=== PATIENT | male | born 1950 | race Hispanic/Latino ===

== ENCOUNTER 2018-08-23 14:38 | Emergency (ER) | payer MEDICARE, OTHER ==
--- NOTE | 2018-08-23 15:20 | Emergency Department Report ---
ED General Adult HPI - General Chief complaint: Medical Clearance Stated complaint: NOT EATING/DRINKING Time Seen by Provider: 08/23/18 15:02 Source: patient, EMS Mode of arrival: Stretcher Limitations: No Limitations - History of Present Illness Initial comments: Patient sent from [facility] for decreased appetite over the last 3 days. The patient states he is not sure why he is here because he has no complaints. Patient states he is not unit because of his nasty. Patient denies chest pain, son's breath, headache, abdominal pain, homicidal or suicidal ideations. . Severity scale (0 -10): 0 Improves with: none Worsens with: none Associated Symptoms: denies other symptoms Treatments Prior to Arrival: none - Related Data Allergies Allergy/AdvReac Type Severity Reaction Status Date / Time No Known Allergies Allergy Verified 08/23/18 14:54 ED Review of Systems ROS: Stated complaint: NOT EATING/DRINKING Other details as noted in HPI Comment: All other systems reviewed and negative Constitutional: denies: chills, fever Eyes: denies: eye pain, eye discharge, vision change ENT: denies: ear pain, throat pain Respiratory: denies: cough, shortness of breath, wheezing Cardiovascular: denies: chest pain, palpitations Endocrine: no symptoms reported Gastrointestinal: denies: abdominal pain, nausea, diarrhea Genitourinary: denies: urgency, dysuria Musculoskeletal: denies: back pain, joint swelling, arthralgia Skin: denies: rash, lesions Neurological: denies: headache, weakness, paresthesias Psychiatric: denies: anxiety, depression Hematological/Lymphatic: denies: easy bleeding, easy bruising ED Past Medical Hx - Past Medical History Previous Medical History?: Yes Hx Hypertension: Yes Hx Diabetes: Yes Hx Psychiatric Treatment: Yes (deprssion) - Surgical History Past Surgical History?: No - Social History Smoking Status: Never Smoker Substance Use Type: None ED Physical Exam - General Limitations: No Limitations General appearance: alert, in no apparent distress - Head Head exam: Present: atraumatic, normocephalic - Eye Eye exam: Present: normal appearance, PERRL, EOMI - ENT ENT exam: Present: mucous membranes moist - Neck Neck exam: Present: normal inspection - Respiratory Respiratory exam: Present: normal lung sounds bilaterally. Absent: respiratory distress, wheezes, rales - Cardiovascular Cardiovascular Exam: Present: regular rate, normal rhythm. Absent: systolic murmur, diastolic murmur, rubs, gallop - GI/Abdominal GI/Abdominal exam: Present: soft, normal bowel sounds. Absent: distended, tenderness - Rectal Rectal exam: Present: deferred - Extremities Exam Extremities exam: Present: normal inspection - Back Exam Back exam: Present: normal inspection - Neurological Exam Neurological exam: Present: alert, oriented X3, CN II-XII intact. Absent: motor sensory deficit - Psychiatric Psychiatric exam: Present: normal affect, normal mood. Absent: homicidal ideation, suicidal ideation - Skin Skin exam: Present: warm, dry, intact, normal color. Absent: rash ED Course Vital Signs 08/23/18 15:09 Temperature 98 F Pulse Rate 103 H Respiratory 14 Rate Blood Pressure 126/89 O2 Sat by Pulse 98 Oximetry ED Medical Decision Making - Medical Decision Making Contacted the facility from which the patient was sent and it was confirmed that the patient was sent to the emergency department because he had a decreased appetite over 3 days Discussed with facility the need to have this followed up by the primary care physician Critical care attestation.: If time is entered above; I have spent that time in minutes in the direct care of this critically ill patient, excluding procedure time. ED Disposition Clinical Impression: Decreased appetite Disposition: DC-01 TO HOME OR SELFCARE Is pt being admited?: No Does the pt Need Aspirin: No Condition: Stable Additional Instructions: return if worse Referrals: [facility] [Provider Group] - 3-5 Days [facility] [Provider Group] - 3-5 Days Time of Disposition: 15:18
[2018-08-23 16:05] VITALS: BP 126/89
== END 2018-08-23 17:28 | disposition home or self-care (01) ==
LOC: ED 14:38
DX: R63.0 Anorexia (principal); I10 Essential (primary) hypertension; E11.9 Type 2 diabetes mellitus without complications; F32.9 Major depressive disorder, single episode, unspecified
CPT/HCPCS: 99284

== ENCOUNTER 2018-08-28 12:06 | Inpatient (IN) | payer MEDICARE ==
--- NOTE | 2018-08-28 13:03 | Emergency Department Report ---
ED General Adult HPI - General Chief complaint: Dizziness Stated complaint: DEHYDRATION Time Seen by Provider: 08/28/18 12:31 Source: EMS Mode of arrival: Stretcher Limitations: No Limitations - History of Present Illness Initial comments: 68-year-old female presents to the ED for low blood pressure. Patient currently at [facility] facility for treatment of depression. Patient states blood pressure was taken today and found to be low, with systolic BP in the 70s. EMS was called. Patient is normotensive with EMS. No IV fluids given by EMS. Patient normotensive upon ED arrival. Patient denies nausea, vomiting, diarrhea, fever, abdominal pain or headache. Patient states appetite has been "somewhat" normal, reports that he has been drinking fluids "somewhat." Patient seen here 5 days ago for decreased appetite, not eating for 3 days at that time. -: days(s) (8) Severity scale (0 -10): 0 Consistency: now resolved Improves with: none Worsens with: none Associated Symptoms: denies other symptoms - Related Data Home Medications Medication Instructions Recorded Confirmed Last Taken Aspirin [Adult Low Dose Aspirin EC] 81 mg PO DAILY 08/28/18 08/28/18 Unknown AtorvaSTATin [Lipitor] 20 mg PO QHS 08/28/18 08/28/18 Unknown Cyproheptadine [Periactin] 4 mg PO BID 08/28/18 08/28/18 Unknown DULoxetine [Cymbalta] 30 mg PO QAM 08/28/18 08/28/18 Unknown Donepezil [Aricept] 10 mg PO QDAY 08/28/18 08/28/18 Unknown Insulin Glargine,Hum.rec.anlog 15 units SQ QHS 08/28/18 08/28/18 Unknown [Lantus] Metoprolol [Lopressor] 25 mg PO DAILY 08/28/18 08/28/18 Unknown Multivitamin Tab [Multiple Vitamin 1 each PO QDAY 08/28/18 08/28/18 Unknown TAB (Theragran)] QUEtiapine [SEROquel] 50 mg PO QHS 08/28/18 08/28/18 Unknown Allergies Allergy/AdvReac Type Severity Reaction Status Date / Time No Known Allergies Allergy Verified 08/23/18 14:54 ED Review of Systems ROS: Stated complaint: DEHYDRATION Other details as noted in HPI Comment: All other systems reviewed and negative Constitutional: denies: chills, fever Respiratory: denies: cough Cardiovascular: denies: chest pain Gastrointestinal: denies: abdominal pain, vomiting, diarrhea Neurological: denies: headache Psychiatric: depression ED Past Medical Hx - Past Medical History Previous Medical History?: Yes Hx Hypertension: Yes Hx Diabetes: Yes Hx Psychiatric Treatment: Yes (deprssion) - Surgical History Past Surgical History?: No - Social History Smoking Status: Current Every Day Smoker Substance Use Type: None - Medications Home Medications: Home Medications Medication Instructions Recorded Confirmed Last Taken Type Aspirin [Adult Low Dose Aspirin EC] 81 mg PO DAILY 08/28/18 08/28/18 Unknown History AtorvaSTATin [Lipitor] 20 mg PO QHS 08/28/18 08/28/18 Unknown History Cyproheptadine [Periactin] 4 mg PO BID 08/28/18 08/28/18 Unknown History DULoxetine [Cymbalta] 30 mg PO QAM 08/28/18 08/28/18 Unknown History Donepezil [Aricept] 10 mg PO QDAY 08/28/18 08/28/18 Unknown History Insulin Glargine,Hum.rec.anlog 15 units SQ QHS 08/28/18 08/28/18 Unknown History [Lantus] Metoprolol [Lopressor] 25 mg PO DAILY 08/28/18 08/28/18 Unknown History Multivitamin Tab [Multiple Vitamin 1 each PO QDAY 08/28/18 08/28/18 Unknown History TAB (Theragran)] QUEtiapine [SEROquel] 50 mg PO QHS 08/28/18 08/28/18 Unknown History ED Physical Exam - General Limitations: No Limitations General appearance: alert, in no apparent distress - Head Head exam: Present: atraumatic, normocephalic - Eye Eye exam: Present: normal appearance - ENT ENT exam: Present: mucous membranes moist - Neck Neck exam: Present: normal inspection - Respiratory Respiratory exam: Present: normal lung sounds bilaterally. Absent: respiratory distress - Cardiovascular Cardiovascular Exam: Present: regular rate, normal rhythm - GI/Abdominal GI/Abdominal exam: Present: soft. Absent: distended, tenderness - Extremities Exam Extremities exam: Present: normal inspection - Neurological Exam Neurological exam: Present: alert, oriented X3, CN II-XII intact. Absent: motor sensory deficit - Psychiatric Psychiatric exam: Present: normal affect, normal mood - Skin Skin exam: Present: warm, dry, intact, normal color ED Course Vital Signs 08/28/18 08/28/18 12:22 12:24 Temperature 97.6 F 97.6 F Pulse Rate 96 H 96 H Respiratory 18 18 Rate Blood Pressure 143/86 Blood Pressure 143/86 [Left] O2 Sat by Pulse 99 99 Oximetry ED Medical Decision Making - Lab Data Result diagrams: 08/28/18 13:18 08/28/18 13:18 - EKG Data -: EKG Interpreted by Me EKG shows normal: sinus rhythm, axis, intervals, QRS complexes, ST-T waves - EKG Data Interpretation: no acute changes - Medical Decision Making 68-year-old male with decreased PO intake for several days. Sent to ED for hypotension and dizziness. Patient not hypotensive here in ED, however, he is orthostatic. Labs show acute renal failure with BUN 40, creatnine 1.3, and mildly elevated potassium of 5.3. IV fluids given. EKG unremarkable, troponin slightly elevated at 0.04, however, pt denies chest pain. Will admit to hospitalist, Dr Dempsey, for further workup. - Differential Diagnosis dehydration, UTI, ARF Critical care attestation.: If time is entered above; I have spent that time in minutes in the direct care of this critically ill patient, excluding procedure time. ED Disposition Clinical Impression: Decreased appetite, Dehydration, Acute renal failure Disposition: OP ADMIT IP TO THIS HOSP Is pt being admited?: Yes Condition: Stable Time of Disposition: 15:21
[2018-08-28] MEDS ORDERED: NACL 0.9% 1000 ML 1,000 ML IV ONE (13:20)
[2018-08-28 13:38] LABS: Basophils # (Auto) 0.1 K/mm3 (0.0-0.1); Basophils % (Auto) 0.5 % (0.0-1.8); Eosinophils % (Auto) 0.4 % (0.0-4.3); Hematocrit 39.7 % (35.5-45.6); Hemoglobin 13.5 gm/dl (11.8-15.2); Lymphocytes # (Auto) 1.5 K/mm3 (1.2-5.4); Lymphocytes % (Auto) 13.5 % (13.4-35.0); Mean Corpuscular HGB Conc 34 % (32-34); Mean Corpuscular Volume 86 fl (84-94); Monocytes # (Auto) 0.5 K/mm3 (0.0-0.8); Monocytes % (Auto) 4.6 % (0.0-7.3); Platelet Count 259 K/mm3 (140-440); Red Blood Count 4.64 M/mm3 (3.65-5.03); Red Cell Distribution Width 13.8 % (13.2-15.2)
[2018-08-28 13:47] LABS: Calcium 9.4 mg/dL (8.4-10.2)
[2018-08-28] MEDS ORDERED: BABY ASPIRIN PO STA (15:51)
[2018-08-28] MEDS ORDERED: MORPHINE IV PRN (15:51)
[2018-08-28] MEDS ORDERED: ZOFRAN IV PRN (15:51)
[2018-08-28] MEDS ORDERED: TYLENOL PO PRN (15:51)
[2018-08-28] MEDS ORDERED: SODIUM CHLORIDE FLUSH SYRINGE 10 ML IV PRN ×2 (15:51)
[2018-08-28] MEDS ORDERED: NITROSTAT SL PRN (15:51)
[2018-08-28] MEDS ORDERED: PROVENTIL IH PRN (15:51)
--- NOTE | 2018-08-28 15:51 | History and Physical Report ---
History of Present Illness Chief complaint: I dont feel well History of present illness: 68 YO Male currently an inpatient at [facility] for Depression with HTN, DM, Nicotine Dependence presents to ED for evaluation. Pt is non communicative and provides limited history. Pt history taken from ED staff as well as [facility] staff. As per staff the patient was found to be hypotensive with systolic BP in the 70's. EMS notified, and upon arrival the patient was found to be normotensive. Pt transported to [facility]. Pt initially acknowledges Orthopnea/PND, chest pain, decreased exercise tolerance, shortness of breath but upon further questioning-the patient does not answer follow uop questions. Pt seen and evaluated in ED and found to have elevated troponin and clinical findings suggestive of Chest pain as well as Diastolic CHF. No further history obtainable. Pt admitted to telemetry. Cardiology consulted in ED. Past History Past Medical History: diabetes, hypertension, other (Depression) Past Surgical History: No surgical history, Other (reviewed) Social history: single, smoking Family history: diabetes, hypertension Medications and Allergies Allergies Allergy/AdvReac Type Severity Reaction Status Date / Time No Known Allergies Allergy Verified 08/23/18 14:54 Home Medications Medication Instructions Recorded Confirmed Last Taken Type Aspirin [Adult Low Dose Aspirin EC] 81 mg PO DAILY 08/28/18 08/28/18 Unknown History AtorvaSTATin [Lipitor] 20 mg PO QHS 08/28/18 08/28/18 Unknown History Cyproheptadine [Periactin] 4 mg PO BID 08/28/18 08/28/18 Unknown History DULoxetine [Cymbalta] 30 mg PO QAM 08/28/18 08/28/18 Unknown History Donepezil [Aricept] 10 mg PO QDAY 08/28/18 08/28/18 Unknown History Insulin Glargine,Hum.rec.anlog 15 units SQ QHS 08/28/18 08/28/18 Unknown History [Lantus] Metoprolol [Lopressor] 25 mg PO DAILY 08/28/18 08/28/18 Unknown History Multivitamin Tab [Multiple Vitamin 1 each PO QDAY 08/28/18 08/28/18 Unknown History TAB (Theragran)] QUEtiapine [SEROquel] 50 mg PO QHS 08/28/18 08/28/18 Unknown History Review of Systems ROS unobtainable: due to mental status Exam - Constitutional Vitals: Temp Pulse Resp BP Pulse Ox 97.6 F 96 H 18 143/86 99 08/28/18 12:24 08/28/18 12:24 08/28/18 12:24 08/28/18 12:24 08/28/18 12:24 General appearance: Present: mild distress - EENT Eyes: Present: PERRL ENT: hearing intact, clear oral mucosa - Neck Neck: Present: supple, normal ROM - Respiratory Respiratory effort: normal Respiratory: bilateral: CTA - Cardiovascular Heart Sounds: Present: S1 & S2. Absent: rub, click - Extremities Extremities: pulses symmetrical Extremity abnormal: edema Peripheral Pulses: within normal limits - Abdominal General gastrointestinal: Present: soft, non-tender, non-distended, normal bowel sounds Male genitourinary: Present: normal - Integumentary Integumentary: Present: clear, warm, dry - Musculoskeletal Musculoskeletal: gait normal, strength equal bilaterally - Psychiatric Psychiatric: appropriate mood/affect, intact judgment & insight - Neurologic Neurologic: CNII-XII intact, moves all extremities Results - Labs CBC & Chem 7: 08/28/18 13:18 08/28/18 13:18 Labs: Abnormal lab results 08/28/18 08/28/18 08/28/18 Range/Units 13:18 13:18 13:18 WBC 11.4 H (4.5-11.0) K/mm3 Seg Neutrophils % 81.0 H (40.0-70.0) % Seg Neutrophils # 9.2 H (1.8-7.7) K/mm3 Sodium 135 L (137-145) mmol/L Potassium 5.3 H (3.6-5.0) mmol/L BUN 40 H (9-20) mg/dL Glucose 284 H (75-100) mg/dL Troponin T 0.040 H (0.00-0.029) ng/mL Assessment and Plan - Patient Problems (1) Diastolic CHF Current Visit: Yes Status: Acute Qualifiers: Heart failure chronicity: acute Qualified Code(s): I50.31 - Acute diastolic (congestive) heart failure Plan to address problem: Admit to telemetry, BNP, d dimer, strict I/O, daily weight, monitor uop q shift, cardiology consulted in ED, CTA chest (2) Chest pain Current Visit: Yes Status: Acute Qualifiers: Ischemic chest pain type: stable angina pectoris Plan to address problem: Admit to telemetry, serial cardiac enzymes, ekg, telemetry, CTA chest, d dimer, chest xray, stress test, cardiology consulted in ED. (3) HTN (hypertension) Current Visit: Yes Status: Acute Qualifiers: Hypertension type: essential hypertension Qualified Code(s): I10 - Essential (primary) hypertension Plan to address problem: Monitor bp q shift, continue medical management. (4) Diabetes Current Visit: Yes Status: Acute Plan to address problem: ADA diet, insulin, accu check (5) DVT prophylaxis Current Visit: Yes Status: Acute Plan to address problem: SCD to BLE while in bed.
[2018-08-28 16:03] LABS: Chol/HDL Ratio 2.79 %
[2018-08-28] MEDS: SODIUM CHLORIDE FLUSH SYRINGE 10 ML IV SCH (22:07)
[2018-08-28] MEDS: LANTUS SUB-Q SCH (23:09)
[2018-08-28] MEDS: PEPCID PO SCH (23:20)
[2018-08-28] MEDS: PERIACTIN PO SCH (23:20)
[2018-08-29] MEDS: THERAGRAN Tab PO SCH (10:22)
[2018-08-29] MEDS: ARICEPT PO SCH (10:22)
[2018-08-29] MEDS: LOPRESSOR PO SCH (10:22)
[2018-08-29] MEDS: PEPCID PO SCH ×2 (10:22→23:29)
[2018-08-29] MEDS: CYMBALTA PO SCH (10:22)
[2018-08-29] MEDS: PERIACTIN PO SCH ×2 (10:23→23:29)
[2018-08-29] MEDS: SODIUM CHLORIDE FLUSH SYRINGE 10 ML IV SCH ×2 (10:23→23:29)
--- NOTE | 2018-08-29 12:15 | Consultation ---
History of Present Illness Consult date: 08/29/18 Consult reason: congestive heart failure History of present illness: Patient is a 68 year old male who is being treated at a psychiatric facility for depression. He was transferred to this hospital with reports of dizziness and hypotension, admitted with dehydration. Patient admits to poor oral intake which resulted in a 30lb weight loss over several months. He denies chest pain and shortness of breath. There was no syncope. Patient reports he also has a history of hypertension and diabetes. He was hospitalized at [facility] 2 months ago and underwent extensive cardiac workup including an echocardiogram and thallium stress test. Results are not available for review. 12 lead EKG is benign, sinus rhythm, no acute ischemic changes. Past History Past Medical History: diabetes, hypertension, other (Depression) Social history: single, smoking Family history: diabetes, hypertension Medications and Allergies Allergies Allergy/AdvReac Type Severity Reaction Status Date / Time No Known Allergies Allergy Verified 08/23/18 14:54 Home Medications Medication Instructions Recorded Confirmed Last Taken Type Aspirin [Adult Low Dose Aspirin EC] 81 mg PO DAILY 08/28/18 08/28/18 Unknown History AtorvaSTATin [Lipitor] 20 mg PO QHS 08/28/18 08/28/18 Unknown History Cyproheptadine [Periactin] 4 mg PO BID 08/28/18 08/28/18 Unknown History DULoxetine [Cymbalta] 30 mg PO QAM 08/28/18 08/28/18 Unknown History Donepezil [Aricept] 10 mg PO QDAY 08/28/18 08/28/18 Unknown History Insulin Glargine,Hum.rec.anlog 15 units SQ QHS 08/28/18 08/28/18 Unknown History [Lantus] Metoprolol [Lopressor] 25 mg PO DAILY 08/28/18 08/28/18 Unknown History Multivitamin Tab [Multiple Vitamin 1 each PO QDAY 08/28/18 08/28/18 Unknown History TAB (Theragran)] QUEtiapine [SEROquel] 50 mg PO QHS 08/28/18 08/28/18 Unknown History Active Meds: Active Medications Acetaminophen (Tylenol) 650 mg PO Q4H PRN PRN Reason: Pain MILD(1-3)/Fever >100.5/OLIVA Albuterol (Proventil) 2.5 mg IH Q4HRT PRN PRN Reason: Shortness Of Breath Atorvastatin Calcium (Lipitor) 20 mg PO QHS [facility] Last Admin: 08/28/18 23:20 Dose: Not Given Documented by: Cyproheptadine HCl (Periactin) 4 mg PO BID [facility] Last Admin: 08/29/18 10:23 Dose: Not Given Documented by: Donepezil HCl (Aricept) 10 mg PO QDAY [facility] Last Admin: 08/29/18 10:22 Dose: 10 mg Documented by: Duloxetine HCl (Cymbalta) 30 mg PO QAM [facility] Last Admin: 08/29/18 10:22 Dose: Not Given Documented by: Famotidine (Pepcid) 20 mg PO BID [facility] Last Admin: 08/29/18 10:22 Dose: Not Given Documented by: Insulin Glargine (Lantus) [facility] Last Admin: 08/28/18 23:09 Dose: 15 units Documented by: Insulin Human Lispro (Humalog) 0 unit SUB-Q [facility]; Protocol Metoprolol Tartrate (Lopressor) 25 mg PO DAILY [facility] Last Admin: 08/29/18 10:22 Dose: 25 mg Documented by: Morphine Sulfate (Morphine) 2 mg IV Q4H PRN PRN Reason: Pain, Moderate (4-6) Multivitamins (Theragran Tab) 1 each PO QDAY [facility] Last Admin: 08/29/18 10:22 Dose: 1 each Documented by: Nitroglycerin (Nitrostat) 0.4 mg SL Q5M PRN PRN Reason: Chest Pain Ondansetron HCl (Zofran) 4 mg IV Q8H PRN PRN Reason: Nausea And Vomiting Quetiapine Fumarate (Seroquel) 50 mg PO QHS [facility] Last Admin: 08/28/18 23:20 Dose: Not Given Documented by: Sodium Chloride (Sodium Chloride Flush Syringe 10 Ml) 10 ml IV BID [facility] Last Admin: 08/29/18 10:23 Dose: 10 ml Documented by: Sodium Chloride (Sodium Chloride Flush Syringe 10 Ml) 10 ml IV PRN PRN PRN Reason: LINE FLUSH Physical Examination Vital Signs Temp Pulse Resp BP Pulse Ox 97.6 F 96 H 18 143/86 99 08/28/18 12:22 08/28/18 12:22 08/28/18 12:22 08/28/18 12:22 08/28/18 12:22 General appearance: no acute distress, cachectic HEENT: Positive: PERRL Neck: Positive: trachea midline Cardiac: Positive: Reg Rate and Rhythm Lungs: Positive: Decreased Breath Sounds Neuro: Positive: Grossly Intact Extremities: Absent: edema Results 08/28/18 13:18 08/28/18 13:18 Lipids 08/28/18 Range/Units 13:18 Triglycerides 136 (2-149) mg/dL Cholesterol 162 (50-199) mg/dL HDL Cholesterol 58 (40-59) mg/dL Cholesterol/HDL Ratio 2.79 % CBC 08/28/18 Range/Units 13:18 WBC 11.4 H (4.5-11.0) K/mm3 RBC 4.64 (3.65-5.03) M/mm3 Hgb 13.5 (11.8-15.2) gm/dl Hct 39.7 (35.5-45.6) % Plt Count 259 (140-440) K/mm3 Lymph # 1.5 (1.2-5.4) K/mm3 [place] # 0.5 (0.0-0.8) K/mm3 Eos # 0.0 (0.0-0.4) K/mm3 Baso # 0.1 (0.0-0.1) K/mm3 Comprehensive Metabolic Panel 08/28/18 Range/Units 13:18 Sodium 135 L (137-145) mmol/L Potassium 5.3 H (3.6-5.0) mmol/L Chloride 99.4 (98-107) mmol/L Carbon Dioxide 26 (22-30) mmol/L BUN 40 H (9-20) mg/dL Creatinine 1.3 (0.8-1.5) mg/dL Glucose 284 H (75-100) mg/dL Calcium 9.4 (8.4-10.2) mg/dL Assessment and Plan Dehydration Depression Hypertension Diabetes mellitus Obtain records from [facility] for cardiac review.
[2018-08-29] MEDS: HumaLOG SUB-Q SCH ×3 (12:52→23:29)
[2018-08-29 14:01] LABS: Basophils # (Auto) 0.1 K/mm3 (0.0-0.1); Basophils % (Auto) 0.8 % (0.0-1.8); Eosinophils # (Auto) 0.1 K/mm3 (0.0-0.4); Hematocrit 33.9 % (35.5-45.6); Hemoglobin 11.3 gm/dl (11.8-15.2); Lymphocytes # (Auto) 1.6 K/mm3 (1.2-5.4); Lymphocytes % (Auto) 21.9 % (13.4-35.0); Mean Corpuscular HGB Conc 33 % (32-34); Mean Corpuscular Volume 86 fl (84-94); Monocytes # (Auto) 0.4 K/mm3 (0.0-0.8); Monocytes % (Auto) 6.1 % (0.0-7.3); Platelet Count 211 K/mm3 (140-440); Red Blood Count 3.97 M/mm3 (3.65-5.03); Red Cell Distribution Width 13.7 % (13.2-15.2)
[2018-08-29 14:17] LABS: BUN/Creatinine Ratio 31; Blood Urea Nitrogen 34 mg/dL (9-20); Calcium 8.4 mg/dL (8.4-10.2); Hemolysis Index 6
--- NOTE | 2018-08-29 17:05 | Progress Note ---
Assessment and Plan Assessment and plan: (1) Diastolic CHF - Patient denied shortness of breath, osteopenia, PND - Patient did have bilateral leg swelling - Patient refused echo and stress test (2) Chest pain - Cardiac enzymes were negative, patient denied chest pain - Patient if his stress test - Patient has a recent cardiac workup at [facility] and cardiology will give that a code from there (3) HTN (hypertension) - Continue blood pressure is on the low side - Hold BP medications (4) Diabetes - SSI, ADA diet, adjust insulin as needed (5) DVT prophylaxis SCD to BLE while in bed. Patient has significant weight loss - I ordered CT of abdomen and chest to rule out cancer Disposition; possible discharge back to [place] tomorrow. History Interval history: Patient was seen and evaluated this morning, patient denied any complaints. No chest pain or shortness of breath. Hospitalist Physical - Physical exam Narrative exam: Not in cardiopulmonary distress. The patient appeared well nourished and normally developed. Vital signs as documented. Head exam is unremarkable. No scleral icterus . Neck is without jugular venous distension, thyromegaly, or carotid bruits. Lungs are clear to auscultation. Cardiac exam reveals regular rate and Rhythm. Abdominal exam reveals normal bowel sounds. Extremities are nonedematous and both femoral and pedal pulses are normal. FANCY NEEDLEWORKER: Alert and oriented 3. - Constitutional Vitals: Temp Pulse Resp BP Pulse Ox 98.7 F 107 H 18 94/58 98 08/29/18 08:53 08/29/18 12:29 08/29/18 08:53 08/29/18 12:29 08/29/18 12:29 General appearance: Present: no acute distress, cachectic Results - Labs CBC & Chem 7: 08/29/18 13:46 08/29/18 13:46 Labs: Laboratory Last Values WBC 7.3 K/mm3 (4.5-11.0) 08/29/18 13:46 RBC 3.97 M/mm3 (3.65-5.03) 08/29/18 13:46 Hgb 11.3 gm/dl (11.8-15.2) L 08/29/18 13:46 Hct 33.9 % (35.5-45.6) L 08/29/18 13:46 MCV 86 fl (84-94) 08/29/18 13:46 MCH 29 pg (28-32) 08/29/18 13:46 MCHC 33 % (32-34) 08/29/18 13:46 RDW 13.7 % (13.2-15.2) 08/29/18 13:46 Plt Count 211 K/mm3 (140-440) 08/29/18 13:46 Lymph % (Auto) 21.9 % (13.4-35.0) 08/29/18 13:46 [place] % (Auto) 6.1 % (0.0-7.3) 08/29/18 13:46 Eos % (Auto) 1.0 % (0.0-4.3) 08/29/18 13:46 Baso % (Auto) 0.8 % (0.0-1.8) 08/29/18 13:46 Lymph # 1.6 K/mm3 (1.2-5.4) 08/29/18 13:46 [place] # 0.4 K/mm3 (0.0-0.8) 08/29/18 13:46 Eos # 0.1 K/mm3 (0.0-0.4) 08/29/18 13:46 Baso # 0.1 K/mm3 (0.0-0.1) 08/29/18 13:46 Seg Neutrophils % 70.2 % (40.0-70.0) H 08/29/18 13:46 Seg Neutrophils # 5.1 K/mm3 (1.8-7.7) 08/29/18 13:46 D-Dimer 226.69 ng/mlDDU (0-234) 08/28/18 16:02 Sodium 139 mmol/L (137-145) 08/29/18 13:46 Potassium 3.6 mmol/L (3.6-5.0) D 08/29/18 13:46 Chloride 102.8 mmol/L (98-107) 08/29/18 13:46 Carbon Dioxide 26 mmol/L (22-30) 08/29/18 13:46 Anion Gap 14 mmol/L 08/29/18 13:46 BUN 34 mg/dL (9-20) H 08/29/18 13:46 Creatinine 1.1 mg/dL (0.8-1.5) 08/29/18 13:46 Estimated GFR > 60 ml/min 08/29/18 13:46 BUN/Creatinine Ratio 31 % 08/29/18 13:46 Glucose 213 mg/dL (75-100) H 08/29/18 13:46 Calcium 8.4 mg/dL (8.4-10.2) 08/29/18 13:46 Troponin T 0.017 ng/mL (0.00-0.029) 08/29/18 13:46 NT-Pro-B Natriuret Pep 233.2 pg/mL (0-900) 08/28/18 16:02 Triglycerides 136 mg/dL (2-149) 08/28/18 13:18 Cholesterol 162 mg/dL (50-199) 08/28/18 13:18 LDL Cholesterol Direct 85 mg/dL (50-130) 08/28/18 13:18 HDL Cholesterol 58 mg/dL (40-59) 08/28/18 13:18 Cholesterol/HDL Ratio 2.79 % 08/28/18 13:18 Nutrition/Malnutrition Assess - Dietary Evaluation Nutrition/Malnutrition Findings: Nutrition Notes Start: 08/29/18 14:02 Freq: Status: Active Protocol: Document 08/29/18 14:02 RM (Rec: 08/29/18 14:18 RM [email or web address]) Nutrition Notes Need for Assessment generated from: drainage inspector,Low BMI Current Diagnosis Diabetes,Hypertension,Heart Failure Other Pertinent Diagnosis Depression Current Diet Cardiac Labs/Tests Reviewed Pertinent Medications Reviewed Height 5 ft 8 in Weight 49.7 kg [place] Body Weight (kg) 70.00 BMI 16.6 Weight change and time frame Current wt obtained from [facility] Subjective/Other Information Screened for low BMI and new onset DM diet education. Pt refusing treatments and care per nurse note 08/29/18. Pt requested that ghost writer come back later. Noted breakfast at bedside w/most eaten. No orbital or temporal wasting. Burn Absent Trauma Absent #1 Nutrition Diagnosis Underweight Etiology depression As Evidenced by Signs and Symptoms pt BMI of 16.1 Is patient on ventilator? No Is Patient Ambulatory and/or Out of Bed Yes REE-([place]or-ambulatory/OOB) [ 3280.450 NUTR.MSJOOB] Kcal/Kg value to use for calculation 40 Approximate Energy Requirements Using 1988 kcal/Kg Calculation Used for Recommendations Kcal/kg Additional Notes Protein Needs: 58-72g (1.2-1. 5g/kg) Fluid Needs: 1 ml/kcal Nutrition Intervention Change Diet Order: Cardiac/Consistent CHO Add Supplement/Snack (indicate name/kcal Glucerna 1 daily /protein ) Provides kCal: 220 Provides Protein (gm) 10 Goal #1 Meet at least 75% of calorie and protein needs via PO and ONS intakes Anticipated Discharge Needs: Cardiac/Consistent CHO Follow-Up By: 08/30/18 Additional Comments Follow for DM diet education, PO and ONS intakes
[2018-08-29] MEDS: LANTUS SUB-Q SCH (23:29)
[2018-08-30] MEDS: HumaLOG SUB-Q SCH ×4 (07:48→23:00)
[2018-08-30] MEDS: LOPRESSOR PO SCH (10:55)
[2018-08-30] MEDS: ARICEPT PO SCH (10:55)
[2018-08-30] MEDS: PEPCID PO SCH ×2 (10:55→23:08)
[2018-08-30] MEDS: CYMBALTA PO SCH (10:55)
[2018-08-30] MEDS: PERIACTIN PO SCH ×2 (10:55→23:08)
[2018-08-30] MEDS: THERAGRAN Tab PO SCH (10:55)
[2018-08-30] MEDS: SODIUM CHLORIDE FLUSH SYRINGE 10 ML IV SCH ×2 (10:55→23:08)
--- NOTE | 2018-08-30 11:20 | Progress Note ---
Assessment and Plan Dehydration Severe Depression Poor appetite Progressive weight loss Hypertension Diabetes mellitus Patient refused a stress test and echocardiogram this admission. Conservative cardiac management. Subjective Date of service: 08/30/18 Interval history: Patient is resting comfortably in bed. He denies chest pain and shortness of breath. No records available from [facility] within the last year. Objective Vital Signs Temp Pulse Resp BP BP Pulse Ox 08/30/18 10:00 97 08/30/18 09:51 103 H 105/48 08/30/18 09:49 98.3 F 99 H 18 82/53 99 08/30/18 09:45 98.3 F 08/30/18 08:20 18 96 08/30/18 04:28 97.6 F 95 H 18 128/84 97 08/29/18 23:56 98.3 F 101 H 16 89/52 93 08/29/18 21:40 99 08/29/18 20:37 98.5 F 98 H 16 86/64 98 08/29/18 12:29 107 H 94/58 98 - Physical Examination General: No Apparent Distress HEENT: Positive: PERRL Neck: Positive: trachea midline Cardiac: Positive: Reg Rate and Rhythm Lungs: Positive: Decreased Breath Sounds Neuro: Positive: Grossly Intact Extremities: Absent: edema - Labs and Meds CBC 08/29/18 Range/Units 13:46 WBC 7.3 (4.5-11.0) K/mm3 RBC 3.97 (3.65-5.03) M/mm3 Hgb 11.3 L (11.8-15.2) gm/dl Hct 33.9 L (35.5-45.6) % Plt Count 211 (140-440) K/mm3 Lymph # 1.6 (1.2-5.4) K/mm3 [place] # 0.4 (0.0-0.8) K/mm3 Eos # 0.1 (0.0-0.4) K/mm3 Baso # 0.1 (0.0-0.1) K/mm3 Comprehensive Metabolic Panel 08/29/18 Range/Units 13:46 Sodium 139 (137-145) mmol/L Potassium 3.6 D (3.6-5.0) mmol/L Chloride 102.8 (98-107) mmol/L Carbon Dioxide 26 (22-30) mmol/L BUN 34 H (9-20) mg/dL Creatinine 1.1 (0.8-1.5) mg/dL Glucose 213 H (75-100) mg/dL Calcium 8.4 (8.4-10.2) mg/dL
--- NOTE | 2018-08-30 16:16 | Progress Note ---
Assessment and Plan Assessment and plan: (1) Diastolic CHF - Patient denied shortness of breath, osteopenia, PND - Patient did have bilateral leg swelling - Patient refused echo and stress test (2) Chest pain - Cardiac enzymes were negative, patient denied chest pain - Patient if his stress test - Patient has a recent cardiac workup at [facility] and cardiology will give that a code from there (3) HTN (hypertension) - Continue blood pressure is on the low side - Hold BP medications (4) Diabetes - SSI, ADA diet, adjust insulin as needed (5) DVT prophylaxis SCD to BLE while in bed. Patient has significant weight loss -Refused CAT scan of chest and abdomen Disposition; patient is medically clear, pending psych evaluation for placement. History Interval history: Patient was seen and evaluated this morning, patient denied any complaints. No chest pain or shortness of breath. Hospitalist Physical - Physical exam Narrative exam: Not in cardiopulmonary distress. The patient appeared well nourished and normally developed. Vital signs as documented. Head exam is unremarkable. No scleral icterus . Neck is without jugular venous distension, thyromegaly, or carotid bruits. Lungs are clear to auscultation. Cardiac exam reveals regular rate and Rhythm. Abdominal exam reveals normal bowel sounds. Extremities are nonedematous and both femoral and pedal pulses are normal. PORTER LUGGAGE: Alert and oriented 3. - Constitutional Vitals: Temp Pulse Resp BP Pulse Ox 98.3 F 103 H 18 105/48 97 08/30/18 09:49 08/30/18 09:51 08/30/18 09:49 08/30/18 09:51 08/30/18 10:00 General appearance: Present: no acute distress, cachectic Results - Labs CBC & Chem 7: 08/29/18 13:46 08/29/18 13:46 Labs: Laboratory Last Values WBC 7.3 K/mm3 (4.5-11.0) 08/29/18 13:46 RBC 3.97 M/mm3 (3.65-5.03) 08/29/18 13:46 Hgb 11.3 gm/dl (11.8-15.2) L 08/29/18 13:46 Hct 33.9 % (35.5-45.6) L 08/29/18 13:46 MCV 86 fl (84-94) 08/29/18 13:46 MCH 29 pg (28-32) 08/29/18 13:46 MCHC 33 % (32-34) 08/29/18 13:46 RDW 13.7 % (13.2-15.2) 08/29/18 13:46 Plt Count 211 K/mm3 (140-440) 08/29/18 13:46 Lymph % (Auto) 21.9 % (13.4-35.0) 08/29/18 13:46 [place] % (Auto) 6.1 % (0.0-7.3) 08/29/18 13:46 Eos % (Auto) 1.0 % (0.0-4.3) 08/29/18 13:46 Baso % (Auto) 0.8 % (0.0-1.8) 08/29/18 13:46 Lymph # 1.6 K/mm3 (1.2-5.4) 08/29/18 13:46 [place] # 0.4 K/mm3 (0.0-0.8) 08/29/18 13:46 Eos # 0.1 K/mm3 (0.0-0.4) 08/29/18 13:46 Baso # 0.1 K/mm3 (0.0-0.1) 08/29/18 13:46 Seg Neutrophils % 70.2 % (40.0-70.0) H 08/29/18 13:46 Seg Neutrophils # 5.1 K/mm3 (1.8-7.7) 08/29/18 13:46 D-Dimer 226.69 ng/mlDDU (0-234) 08/28/18 16:02 Sodium 139 mmol/L (137-145) 08/29/18 13:46 Potassium 3.6 mmol/L (3.6-5.0) D 08/29/18 13:46 Chloride 102.8 mmol/L (98-107) 08/29/18 13:46 Carbon Dioxide 26 mmol/L (22-30) 08/29/18 13:46 Anion Gap 14 mmol/L 08/29/18 13:46 BUN 34 mg/dL (9-20) H 08/29/18 13:46 Creatinine 1.1 mg/dL (0.8-1.5) 08/29/18 13:46 Estimated GFR > 60 ml/min 08/29/18 13:46 BUN/Creatinine Ratio 31 % 08/29/18 13:46 Glucose 213 mg/dL (75-100) H 08/29/18 13:46 Calcium 8.4 mg/dL (8.4-10.2) 08/29/18 13:46 Troponin T 0.017 ng/mL (0.00-0.029) 08/29/18 13:46 NT-Pro-B Natriuret Pep 233.2 pg/mL (0-900) 08/28/18 16:02 Triglycerides 136 mg/dL (2-149) 08/28/18 13:18 Cholesterol 162 mg/dL (50-199) 08/28/18 13:18 LDL Cholesterol Direct 85 mg/dL (50-130) 08/28/18 13:18 HDL Cholesterol 58 mg/dL (40-59) 08/28/18 13:18 Cholesterol/HDL Ratio 2.79 % 08/28/18 13:18 Nutrition/Malnutrition Assess - Dietary Evaluation Nutrition/Malnutrition Findings: Nutrition Notes Start: 08/29/18 14 :02 Freq: Status: Active Protocol: Document 08/30/18 15:35 RM (Rec: 08/30/18 15:40 RM [id number]) Nutrition Notes Initial or Follow up Reassessment Current Diagnosis Diabetes,Hypertension,Heart Failure Other Pertinent Diagnosis Depression Current Diet Cardiac/Consistent CHO w/ Glucerna daily Labs/Tests Reviewed Pertinent Medications Reviewed Height 5 ft 8 in Weight 49.8 kg [place] Body Weight (kg) 70.00 BMI 16.7 Subjective/Other Information Pt stated that he eats all of his meals and that he does not want the Glucerna. Pt refused to speak w/com writer any further . Percent of energy/protein needs met: 99%/100% Burn Absent Trauma Absent #1 Nutrition Diagnosis Underweight Diagnosis Progress(for reassessment Continues documentation) Is patient on ventilator? No Is Patient Ambulatory and/or Out of Bed Yes REE-([place]-ambulatory/OOB) [ 6887.855 NUTR.MSJOOB] Kcal/Kg value to use for calculation 40 Approximate Energy Requirements Using 1992 kcal/Kg Calculation Used for Recommendations Kcal/kg Additional Notes Protein Needs: 58-72g (1.2-1. 5g/kg) Fluid Needs: 1 ml/kcal Nutrition Intervention Change Diet Order: Cardiac/Consistent CHO Add Supplement/Snack (indicate name/kcal D/C Glucerna 1 daily /protein ) Goal #1 Meet at least 75% of calorie and protein needs via PO and ONS intakes Anticipated Discharge Needs: Cardiac/Consistent CHO Follow-Up By: 09/01/18 Additional Comments Follow for DM diet education and PO intakes
[2018-08-30 17:17] LABS: BUN/Creatinine Ratio 31; Blood Urea Nitrogen 28 mg/dL (9-20); Calcium 8.5 mg/dL (8.4-10.2); Hemolysis Index 9
[2018-08-30] MEDS: LANTUS SUB-Q SCH (23:07)
[2018-08-31] MEDS: HumaLOG SUB-Q SCH ×4 (07:42→23:19)
[2018-08-31] MEDS: ARICEPT PO SCH (10:02)
[2018-08-31] MEDS: PEPCID PO SCH ×2 (10:02→22:32)
[2018-08-31] MEDS: CYMBALTA PO SCH ×2 (10:02→10:10)
[2018-08-31] MEDS: LOPRESSOR PO SCH (10:02)
[2018-08-31] MEDS: PERIACTIN PO SCH ×2 (10:02→22:32)
[2018-08-31] MEDS: THERAGRAN Tab PO SCH ×2 (10:02→10:10)
[2018-08-31] MEDS: SODIUM CHLORIDE FLUSH SYRINGE 10 ML IV SCH (10:02)
--- NOTE | 2018-08-31 11:46 | Progress Note ---
Assessment and Plan Dehydration Severe Depression Poor appetite Progressive weight loss Hypertension Diabetes mellitus Patient refused a stress test and echocardiogram this admission. Conservative cardiac management. We will follow intermittently. Subjective Date of service: 08/31/18 Interval history: Patient is resting comfortably in bed. He denies chest pain and shortness of breath. Objective Vital Signs Temp Pulse Resp BP Pulse Ox 08/31/18 08:52 98.3 F 85 16 130/79 98 08/31/18 05:13 97.4 F L 91 H 20 113/69 96 08/31/18 01:00 97 H 08/31/18 00:33 98.3 F 97 H 20 103/58 98 08/30/18 22:00 16 08/30/18 20:58 98.5 F 94 H 20 112/63 97 08/30/18 17:00 86 - Physical Examination General: No Apparent Distress HEENT: Positive: PERRL Cardiac: Positive: Reg Rate and Rhythm Lungs: Positive: Decreased Breath Sounds Neuro: Positive: Grossly Intact Extremities: Absent: edema - Labs and Meds Comprehensive Metabolic Panel 08/30/18 Range/Units 16:01 Sodium 139 (137-145) mmol/L Potassium 3.7 (3.6-5.0) mmol/L Chloride 105.1 (98-107) mmol/L Carbon Dioxide 24 (22-30) mmol/L BUN 28 H (9-20) mg/dL Creatinine 0.9 (0.8-1.5) mg/dL Glucose 232 H (75-100) mg/dL Calcium 8.5 (8.4-10.2) mg/dL
--- NOTE | 2018-08-31 16:00 | Progress Note ---
Assessment and Plan Assessment and plan: (1) Diastolic CHF - Patient denied shortness of breath, osteopenia, PND - Patient did have bilateral leg swelling - Patient refused echo and stress test (2) Chest pain - Cardiac enzymes were negative, patient denied chest pain - Patient if his stress test - Patient has a recent cardiac workup at [facility] and cardiology will give that a code from there (3) HTN (hypertension) - Continue blood pressure is on the low side - Hold BP medications (4) Diabetes - SSI, ADA diet, adjust insulin as needed (5) DVT prophylaxis SCD to BLE while in bed. Patient has significant weight loss -Refused CAT scan of chest and abdomen Disposition; patient is medically clear, pending psych evaluation for placement. History Interval history: Patient was seen and evaluated this morning, patient doesn't want to talk to me but he said he is ok. Hospitalist Physical - Physical exam Narrative exam: Not in cardiopulmonary distress. The patient appeared well nourished and normally developed. Vital signs as documented. Head exam is unremarkable. No scleral icterus . Neck is without jugular venous distension, thyromegaly, or carotid bruits. Lungs are clear to auscultation. Cardiac exam reveals regular rate and Rhythm. Abdominal exam reveals normal bowel sounds. Extremities are nonedematous and both femoral and pedal pulses are normal. MEAT TRIMMER: Alert and oriented 3. - Constitutional Vitals: Temp Pulse Resp BP Pulse Ox 98.2 F 81 16 132/76 98 08/31/18 15:53 08/31/18 15:53 08/31/18 15:53 08/31/18 15:53 08/31/18 15:53 General appearance: Present: no acute distress, cachectic Results - Labs CBC & Chem 7: 08/29/18 13:46 08/30/18 16:01 Labs: Laboratory Last Values WBC 7.3 K/mm3 (4.5-11.0) 08/29/18 13:46 RBC 3.97 M/mm3 (3.65-5.03) 08/29/18 13:46 Hgb 11.3 gm/dl (11.8-15.2) L 08/29/18 13:46 Hct 33.9 % (35.5-45.6) L 08/29/18 13:46 MCV 86 fl (84-94) 08/29/18 13:46 MCH 29 pg (28-32) 08/29/18 13:46 MCHC 33 % (32-34) 08/29/18 13:46 RDW 13.7 % (13.2-15.2) 08/29/18 13:46 Plt Count 211 K/mm3 (140-440) 08/29/18 13:46 Lymph % (Auto) 21.9 % (13.4-35.0) 08/29/18 13:46 [place] % (Auto) 6.1 % (0.0-7.3) 08/29/18 13:46 Eos % (Auto) 1.0 % (0.0-4.3) 08/29/18 13:46 Baso % (Auto) 0.8 % (0.0-1.8) 08/29/18 13:46 Lymph # 1.6 K/mm3 (1.2-5.4) 08/29/18 13:46 [place] # 0.4 K/mm3 (0.0-0.8) 08/29/18 13:46 Eos # 0.1 K/mm3 (0.0-0.4) 08/29/18 13:46 Baso # 0.1 K/mm3 (0.0-0.1) 08/29/18 13:46 Seg Neutrophils % 70.2 % (40.0-70.0) H 08/29/18 13:46 Seg Neutrophils # 5.1 K/mm3 (1.8-7.7) 08/29/18 13:46 D-Dimer 226.69 ng/mlDDU (0-234) 08/28/18 16:02 Sodium 139 mmol/L (137-145) 08/30/18 16:01 Potassium 3.7 mmol/L (3.6-5.0) 08/30/18 16:01 Chloride 105.1 mmol/L (98-107) 08/30/18 16:01 Carbon Dioxide 24 mmol/L (22-30) 08/30/18 16:01 Anion Gap 14 mmol/L 08/30/18 16:01 BUN 28 mg/dL (9-20) H 08/30/18 16:01 Creatinine 0.9 mg/dL (0.8-1.5) 08/30/18 16:01 Estimated GFR > 60 ml/min 08/30/18 16:01 BUN/Creatinine Ratio 31 % 08/30/18 16:01 Glucose 232 mg/dL (75-100) H 08/30/18 16:01 POC Glucose 90 (70-105) 08/31/18 12:53 Calcium 8.5 mg/dL (8.4-10.2) 08/30/18 16:01 Troponin T 0.017 ng/mL (0.00-0.029) 08/29/18 13:46 NT-Pro-B Natriuret Pep 233.2 pg/mL (0-900) 08/28/18 16:02 Triglycerides 136 mg/dL (2-149) 08/28/18 13:18 Cholesterol 162 mg/dL (50-199) 08/28/18 13:18 LDL Cholesterol Direct 85 mg/dL (50-130) 08/28/18 13:18 HDL Cholesterol 58 mg/dL (40-59) 08/28/18 13:18 Cholesterol/HDL Ratio 2.79 % 08/28/18 13:18 Nutrition/Malnutrition Assess - Dietary Evaluation Nutrition/Malnutrition Findings: Nutrition Notes Start: 08/29/18 14:02 Freq: Status: Active Protocol: Document 08/30/18 15:35 RM (Rec: 08/30/18 15:40 RM [id number]) Nutrition Notes Initial or Follow up Reassessment Current Diagnosis Diabetes,Hypertension,Heart Failure Other Pertinent Diagnosis Depression Current Diet Cardiac/Consistent CHO w/ Glucerna daily Labs/Tests Reviewed Pertinent Medications Reviewed Height 5 ft 8 in Weight 49.8 kg [place] Body Weight (kg) 70.00 BMI 16.7 Subjective/Other Information Pt stated that he eats all of his meals and that he does not want the Glucerna. Pt refused to speak w/display card writer any further . Percent of energy/protein needs met: 99%/100% Burn Absent Trauma Absent #1 Nutrition Diagnosis Underweight Diagnosis Progress(for reassessment Continues documentation) Is patient on ventilator? No Is Patient Ambulatory and/or Out of Bed Yes REE-([place]-St. [place]or-ambulatory/OOB) [ 5141.494 NUTR.MSJOOB] Kcal/Kg value to use for calculation 40 Approximate Energy Requirements Using 1992 kcal/Kg Calculation Used for Recommendations Kcal/kg Additional Notes Protein Needs: 58-72g (1.2-1. 5g/kg) Fluid Needs: 1 ml/kcal Nutrition Intervention Change Diet Order: Cardiac/Consistent CHO Add Supplement/Snack (indicate name/kcal D/C Glucerna 1 daily /protein ) Goal #1 Meet at least 75% of calorie and protein needs via PO and ONS intakes Anticipated Discharge Needs: Cardiac/Consistent CHO Follow-Up By: 09/01/18 Additional Comments Follow for DM diet education and PO intakes
[2018-08-31] MEDS: LANTUS SUB-Q SCH (22:38)
[2018-09-01] MEDS: HumaLOG SUB-Q SCH ×4 (07:30→22:51)
[2018-09-01] MEDS: SODIUM CHLORIDE FLUSH SYRINGE 10 ML IV SCH ×3 (07:40→21:51)
[2018-09-01] MEDS: ARICEPT PO SCH (10:32)
[2018-09-01] MEDS: PERIACTIN PO SCH ×2 (10:32→21:51)
[2018-09-01] MEDS: LOPRESSOR PO SCH (10:32)
[2018-09-01] MEDS: THERAGRAN Tab PO SCH (10:32)
[2018-09-01] MEDS: PEPCID PO SCH ×2 (10:33→21:51)
[2018-09-01] MEDS: CYMBALTA PO SCH (10:36)
--- NOTE | 2018-09-01 13:39 | Discharge Summary ---
Providers - Providers Date of Admission: 08/28/18 15:51 Date of discharge: 09/01/18 Attending physician: ESTEVAN WOOD MD 08/28/18 Consult to Cardiac Rehabilitation [CONS] Routine Reason For Exam: Phase I 08/28/18 15:51 Consult to Cardiology [CONS] Routine Consulting Provider: PHILLIP POSEY Reason For Exam: chf 08/30/18 10:03 Consult to Mental Health [CONS] Routine Reason For Exam: Schizophrenia, dpression Place consult to:: mental health Notified:: Colleen LANDRY Phone number called:: [phone]. [phone] Was contact made?: Yes If yes, spoke with:: [facility] Comment:: need assistance in the DC planning, anchor? Primary care physician: BARBERING TEACHER Hospitalization Reason for admission: chest pain Condition: Stable Disposition: DC/[place]-03 SNF [facility] Time spent for discharge: 32 minutes - Discharge Diagnoses (1) Chest pain Status: Acute Qualifiers: Ischemic chest pain type: stable angina pectoris (2) Decreased appetite Status: Acute (3) Dehydration Status: Acute (4) Schizophrenia Status: Acute Core Measure Documentation - Palliative Care Palliative Care/ Comfort Measures: Not Applicable - Core Measures Any of the following diagnoses?: none Exam - Physical Exam Narrative exam: Not in cardiopulmonary distress. The patient appeared well nourished and normally developed. Vital signs as documented. Head exam is unremarkable. No scleral icterus . Neck is without jugular venous distension, thyromegaly, or carotid bruits. Lungs are clear to auscultation. Cardiac exam reveals regular rate and Rhythm. Abdominal exam reveals normal bowel sounds. Extremities are nonedematous and both femoral and pedal pulses are normal. VOLUNTEER SERVICES ASSISTANT: Alert and oriented 3. - Constitutional Vitals: Temp Pulse Resp BP Pulse Ox 97.6 F 100 H 17 100/65 100 09/01/18 05:14 09/01/18 00:55 09/01/18 05:14 09/01/18 05:14 09/01/18 05:14 Plan Activity: no restrictions Weight Bearing Status: Full Weight Bearing Diet: low cholesterol, low salt Follow up with: PEDRITO TRIPATHI MD [Primary Care Provider] - 3-5 Days SANDRITA SOUZA MD [Staff Physician] - 7 Days
--- NOTE | 2018-09-01 14:03 | Consultation ---
History of Present Illness - Reason for Consult Consult date: 09/01/18 Reason for consult: Mental Helath Evaluation Requesting physician: ESTEVAN WOOD - Chief Complaint Chief complaint: "Hello" - History of Present Psychiatric Illness 68-year-old white male who presented to the ER from [facility] for low blood pressure. Psychiatry was consulted to see the patient because he was refused procedures, eating, and taking his medications. Today the patient is calm and cooperative during the assessment. He stated that he refused the stress test because he had that procedure done Jun 2018. He stated that he has lost a lot of weight over the past year even when he was eating 3 meals a day. Per the patient, he ate his breakfast this morning and dinner last night. He stated that he went to see a physician reference his weight lost, but he wasn't given a dx. He stated that he need to eat so he can receive "valuable nutrition" when asked about PO intake. He stated that he wasn't aware of the new medications that were ordered for him, so he "may have" refused them. He stated that he does not take Aricept or Seroquel, but is familiar with Cymbalta and don't mind taking that medication for depression. He rate his depression 4/10, with 10 being the worse. He stated that his medical issues exacerbate his depression. Per collateral information from his ex- Mica at [phone], she stated that the patient have not been sleeping well and has lost a lot of weight in the past year. She stated that the patient do not have a support system in place. She stated that they have a good relationship and will do what she can for the patient. The patient denies SI/HI's and AVH's. He denies recreational drug use and alcohol consumption (etoh). Medications and Allergies Allergies Allergy/AdvReac Type Severity Reaction Status Date / Time No Known Allergies Allergy Verified 08/23/18 14:54 Home Medications Medication Instructions Recorded Confirmed Last Taken Type Aspirin [Adult Low Dose Aspirin EC] 81 mg PO DAILY 08/28/18 08/28/18 Unknown History AtorvaSTATin [Lipitor] 20 mg PO QHS 08/28/18 08/28/18 Unknown History Cyproheptadine [Periactin] 4 mg PO BID 08/28/18 08/28/18 Unknown History DULoxetine [Cymbalta] 30 mg PO QAM 08/28/18 08/28/18 Unknown History Donepezil [Aricept] 10 mg PO QDAY 08/28/18 08/28/18 Unknown History Insulin Glargine,Hum.rec.anlog 15 units SQ QHS 08/28/18 08/28/18 Unknown History [Lantus] Metoprolol [Lopressor TAB] 25 mg PO DAILY 08/28/18 08/28/18 Unknown History Multivitamin Tab [Multiple Vitamin 1 each PO QDAY 08/28/18 08/28/18 Unknown His tory TAB (Theragran)] QUEtiapine [SEROquel] 50 mg PO QHS 08/28/18 08/28/18 Unknown History Active Meds: Active Medications Acetaminophen (Tylenol) 650 mg PO Q4H PRN PRN Reason: Pain MILD(1-3)/Fever >100.5/OLIVA Albuterol (Proventil) 2.5 mg IH Q4HRT PRN PRN Reason: Shortness Of Breath Atorvastatin Calcium (Lipitor) 20 mg PO QHS [facility] Last Admin: 08/31/18 22:32 Dose: 20 mg Documented by: Cyproheptadine HCl (Periactin) 4 mg PO BID [facility] Last Admin: 09/01/18 10:32 Dose: 4 mg Documented by: Donepezil HCl (Aricept) 10 mg PO QDAY [facility] Last Admin: 09/01/18 10:32 Dose: 10 mg Documented by: Duloxetine HCl (Cymbalta) 30 mg PO QAM [facility] Last Admin: 09/01/18 10:36 Dose: 30 mg Documented by: Famotidine (Pepcid) 20 mg PO BID [facility] Last Admin: 09/01/18 10:33 Dose: 20 mg Documented by: Insulin [facility] (Lantus) [facility] Last Admin: 08/31/18 22:38 Dose: 15 units Documented by: Insulin Human Lispro (Humalog) 0 unit SUB-Q [facility]; Protocol Last Admin: 09/01/18 07:30 Dose: Not Given Documented by: Metoprolol Tartrate (Lopressor) 25 mg PO DAILY [facility] Last Admin: 09/01/18 10:32 Dose: 25 mg Documented by: Morphine Sulfate (Morphine) 2 mg IV Q4H PRN PRN Reason: Pain, Moderate (4-6) Multivitamins (Theragran Tab) 1 each PO QDAY [facility] Last Admin: 09/01/18 10:32 Dose: 1 each Documented by: Nitroglycerin (Nitrostat) 0.4 mg SL Q5M PRN PRN Reason: Chest Pain Ondansetron HCl (Zofran) 4 mg IV Q8H PRN PRN Reason: Nausea And Vomiting Quetiapine Fumarate (Seroquel) 50 mg PO QHS [facility] Last Admin: 08/31/18 22:33 Dose: 50 mg Documented by: Sodium Chloride (Sodium Chloride Flush Syringe 10 Ml) 10 ml IV BID [facility] Last Admin: 09/01/18 10:42 Dose: 10 ml Documented by: Sodium Chloride (Sodium Chloride Flush Syringe 10 Ml) 10 ml IV PRN PRN PRN Reason: LINE FLUSH Past psychiatric history - Past Medical History Past Medical History: diabetes Past Surgical History: No surgical history - past Psychiatric treatment and history psychiatric treatment history: Hx of depression. Denies a fam psy hx. - Social History Social history: lives with family Mental Status Exam - Vital signs Last Vital Signs Temp 97.6 F 09/01/18 05:14 Pulse 100 H 09/01/18 00:55 Resp 17 09/01/18 05:14 BP 100/65 09/01/18 05:14 Pulse Ox 100 09/01/18 05:14 - Exam Narrative exam: MSE: Appearance: calm, cooperative Behavior: regular eye contact Speech: regular rate and tone Mood: "okay" Affect: congruent to mood Thought Process: logical Thought Content: denies SI/HI's and AVH's Motor Activity: sitting up in bed Cognition: A/O x3 Insight: appropriate Judgment: appropriate Results Result Diagrams: 08/29/18 13:46 08/30/18 16:01 Abnormal lab results 08/31/18 08/31/18 09/01/18 Range/Units 15:55 21:22 07:48 POC Glucose 129 H 250 H 131 H (70-105) 09/01/18 Range/Units 11:39 POC Glucose 191 H (70-105) All other labs normal. Assessment and Plan Assessment and plan: Impression: Hx of Depression. Today the patient is calm and cooperative during the assessment. The patient is no threat to self. Recommendation/Plan: Continue Cymbalta 30 mg PO daily for depression. Discussed possible suicidality/medication induced shannon with the patient reference Cymbalta. Dispo: The patient can follow up with [facility] for outpatient psy services. Staffed with Dr Boyd.
--- NOTE | 2018-09-01 15:56 | Progress Note ---
Assessment and Plan Assessment and plan: (1) Diastolic CHF - Patient denied shortness of breath, osteopenia, PND - Patient did have bilateral leg swelling - Patient refused echo and stress test (2) Chest pain - Cardiac enzymes were negative, patient denied chest pain - Patient if his stress test - Patient has a recent cardiac workup at [facility] and cardiology will give that a code from there (3) HTN (hypertension) - Continue blood pressure is on the low side - Hold BP medications (4) Diabetes - SSI, ADA diet, adjust insulin as needed (5) DVT prophylaxis SCD to BLE while in bed. Patient has significant weight loss -Refused CAT scan of chest and abdomen Disposition; patient was cleared by psych for discharge, [facility], patient doesn't have anywhere to go and pending placement. - Patient Problems (1) Chest pain Current Visit: Yes Status: Acute Qualifiers: Ischemic chest pain type: stable angina pectoris (2) Decreased appetite Current Visit: Yes Status: Acute (3) Dehydration Current Visit: Yes Status: Acute (4) Schizophrenia Current Visit: Yes Status: Acute History Interval history: Patient was seen and evaluated this morning, patient doesn't want to talk to me but he said he is ok. Hospitalist Physical - Physical exam Narrative exam: Not in cardiopulmonary distress. The patient appeared well nourished and normally developed. Vital signs as documented. Head exam is unremarkable. No scleral icterus . Neck is without jugular venous distension, thyromegaly, or carotid bruits. Lungs are clear to auscultation. Cardiac exam reveals regular rate and Rhythm. Abdominal exam reveals normal bowel sounds. Extremities are nonedematous and both femoral and pedal pulses are normal. 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 - Constitutional Vitals: Temp Pulse Resp BP Pulse Ox 97.6 F 100 H 17 100/65 100 09/01/18 05:14 09/01/18 00:55 09/01/18 05:14 09/01/18 05:14 09/01/18 05:14 General appearance: Present: no acute distress, cachectic Results - Labs CBC & Chem 7: 08/29/18 13:46 08/30/18 16:01 Labs: Laboratory Last Values WBC 7.3 K/mm3 (4.5-11.0) 08/29/18 13:46 RBC 3.97 M/mm3 (3.65-5.03) 08/29/18 13:46 Hgb 11.3 gm/dl (11.8-15.2) L 08/29/18 13:46 Hct 33.9 % (35.5-45.6) L 08/29/18 13:46 MCV 86 fl (84-94) 08/29/18 13:46 MCH 29 pg (28-32) 08/29/18 13:46 MCHC 33 % (32-34) 08/29/18 13:46 RDW 13.7 % (13.2-15.2) 08/29/18 13:46 Plt Count 211 K/mm3 (140-440) 08/29/18 13:46 Lymph % (Auto) 21.9 % (13.4-35.0) 08/29/18 13:46 [place] % (Auto) 6.1 % (0.0-7.3) 08/29/18 13:46 Eos % (Auto) 1.0 % (0.0-4.3) 08/29/18 13:46 Baso % (Auto) 0.8 % (0.0-1.8) 08/29/18 13:46 Lymph # 1.6 K/mm3 (1.2-5.4) 08/29/18 13:46 [place] # 0.4 K/mm3 (0.0-0.8) 08/29/18 13:46 Eos # 0.1 K/mm3 (0.0-0.4) 08/29/18 13:46 Baso # 0.1 K/mm3 (0.0-0.1) 08/29/18 13:46 Seg Neutrophils % 70.2 % (40.0-70.0) H 08/29/18 13:46 Seg Neutrophils # 5.1 K/mm3 (1.8-7.7) 08/29/18 13:46 D-Dimer 226.69 ng/mlDDU (0-234) 08/28/18 16:02 Sodium 139 mmol/L (137-145) 08/30/18 16:01 Potassium 3.7 mmol/L (3.6-5.0) 08/30/18 16:01 Chloride 105.1 mmol/L (98-107) 08/30/18 16:01 Carbon Dioxide 24 mmol/L (22-30) 08/30/18 16:01 Anion Gap 14 mmol/L 08/30/18 16:01 BUN 28 mg/dL (9-20) H 08/30/18 16:01 Creatinine 0.9 mg/dL (0.8-1.5) 08/30/18 16:01 Estimated GFR > 60 ml/min 08/30/18 16:01 BUN/Creatinine Ratio 31 % 08/30/18 16:01 Glucose 232 mg/dL (75-100) H 08/30/18 16:01 POC Glucose 191 (70-105) H 09/01/18 11:39 Calcium 8.5 mg/dL (8.4-10.2) 08/30/18 16:01 Troponin T 0.017 ng/mL (0.00-0.029) 08/29/18 13:46 NT-Pro-B Natriuret Pep 233.2 pg/mL (0-900) 08/28/18 16:02 Triglycerides 136 mg/dL (2-149) 08/28/18 13:18 Cholesterol 162 mg/dL (50-199) 08/28/18 13:18 LDL Cholesterol Direct 85 mg/dL (50-130) 08/28/18 13:18 HDL Cholesterol 58 mg/dL (40-59) 08/28/18 13:18 Cholesterol/HDL Ratio 2.79 % 08/28/18 13:18 Nutrition/Malnutrition Assess - Dietary Evaluation Nutrition/Malnutrition Findings: Nutrition Notes Start: 08/29/18 14:02 Freq: Status: Active Protocol: Document 09/01/18 10:59 TW (Rec: 09/01/18 11:02 TW [email or web address]) Co-Sign 09/01/18 10:59 LP Nutrition Notes Initial or Follow up Reassessment Current Diagnosis Diabetes,Hypertension,Heart Failure Other Pertinent Diagnosis Depression Current Diet Cardiac/Consistent CHO w/ Glucerna daily Labs/Tests Reviewed Pertinent Medications Reviewed Height 5 ft 8 in Weight 49.3 kg [place] Body Weight (kg) 70.00 BMI 16.5 Subjective/Other Information PT stated he has had DM for 20 years and refused DM education. He stated he is eating well and has a good appetitie. Percent of energy/protein needs met: 99%/100% Burn Absent Trauma Absent #1 Nutrition Diagnosis Underweight Diagnosis Progress(for reassessment Continues documentation) Is patient on ventilator? No Is Patient Ambulatory and/or Out of Bed Yes REE-([place]-St. Jeor-ambulatory/OOB) [ 1615.250 NUTR.MSJOOB] Kcal/Kg value to use for calculation 40 Approximate Energy Requirements Using 1972 kcal/Kg Calculation Used for Recommendations Kcal/kg Additional Notes Protein Needs: 58-72g (1.2-1. 5g/kg) Fluid Needs: 1 ml/kcal Nutrition Intervention Change Diet Order: Cardiac/Consistent CHO Goal #1 Meet at least 75% of calorie and protein needs via PO intake Anticipated Discharge Needs: Cardiac/Consistent CHO Follow-Up By: 09/08/18 Additional Comments Follow up for stable intakes
[2018-09-01] MEDS: LANTUS SUB-Q SCH (22:51)
[2018-09-02] MEDS: PEPCID PO SCH ×2 (11:00→22:00)
[2018-09-02] MEDS: PERIACTIN PO SCH ×2 (11:00→22:00)
[2018-09-02] MEDS: CYMBALTA PO SCH (11:00)
[2018-09-02] MEDS: LOPRESSOR PO SCH (11:00)
[2018-09-02] MEDS: SODIUM CHLORIDE FLUSH SYRINGE 10 ML IV SCH ×2 (11:00→22:00)
[2018-09-02] MEDS: THERAGRAN Tab PO SCH (11:00)
--- NOTE | 2018-09-02 12:55 | Progress Note ---
Assessment and Plan Assessment and plan: (1) Diastolic CHF - Patient denied shortness of breath, osteopenia, PND - Patient did have bilateral leg swelling - Patient refused echo and stress test (2) Chest pain - Cardiac enzymes were negative, patient denied chest pain - Patient if his stress test - Patient has a recent cardiac workup at [facility] and cardiology will give that a code from there (3) HTN (hypertension) - Continue blood pressure is on the low side - Hold BP medications (4) Diabetes - SSI, ADA diet, adjust insulin as needed (5) DVT prophylaxis SCD to BLE while in bed. Patient has significant weight loss -Refused CAT scan of chest and abdomen Disposition; patient was cleared by psych for discharge, but patient came from [facility] and they declined to accept him, patient doesn't have anywhere to go and pending placement. - Patient Problems (1) Chest pain Current Visit: Yes Status: Acute Qualifiers: Ischemic chest pain type: stable angina pectoris (2) Decreased appetite Current Visit: Yes Status: Acute (3) Dehydration Current Visit: Yes Status: Acute (4) Schizophrenia Current Visit: Yes Status: Acute History Interval history: Patient was seen and evaluated this morning, patient doesn't want to talk to me but he said he is ok. Hospitalist Physical - Physical exam Narrative exam: Not in cardiopulmonary distress. The patient appeared well nourished and normally developed. Vital signs as documented. Head exam is unremarkable. No scleral icterus . Neck is without jugular venous distension, thyromegaly, or carotid bruits. Lungs are clear to auscultation. Cardiac exam reveals regular rate and Rhythm. Abdominal exam reveals normal bowel sounds. Extremities are nonedematous and both femoral and pedal pulses are normal. 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 - Constitutional Vitals: Temp Pulse Resp BP Pulse Ox 98.5 F 97 H 20 134/80 99 09/02/18 06:23 09/02/18 06:23 09/02/18 06:23 09/02/18 06:23 09/02/18 06:23 General appearance: Present: no acute distress, cachectic Results - Labs CBC & Chem 7: 08/29/18 13:46 08/30/18 16:01 Labs: Laboratory Last Values WBC 7.3 K/mm3 (4.5-11.0) 08/29/18 13:46 RBC 3.97 M/mm3 (3.65-5.03) 08/29/18 13:46 Hgb 11.3 gm/dl (11.8-15.2) L 08/29/18 13:46 Hct 33.9 % (35.5-45.6) L 08/29/18 13:46 MCV 86 fl (84-94) 08/29/18 13:46 MCH 29 pg (28-32) 08/29/18 13:46 MCHC 33 % (32-34) 08/29/18 13:46 RDW 13.7 % (13.2-15.2) 08/29/18 13:46 Plt Count 211 K/mm3 (140-440) 08/29/18 13:46 Lymph % (Auto) 21.9 % (13.4-35.0) 08/29/18 13:46 [place] % (Auto) 6.1 % (0.0-7.3) 08/29/18 13:46 Eos % (Auto) 1.0 % (0.0-4.3) 08/29/18 13:46 Baso % (Auto) 0.8 % (0.0-1.8) 08/29/18 13:46 Lymph # 1.6 K/mm3 (1.2-5.4) 08/29/18 13:46 [place] # 0.4 K/mm3 (0.0-0.8) 08/29/18 13:46 Eos # 0.1 K/mm3 (0.0-0.4) 08/29/18 13:46 Baso # 0.1 K/mm3 (0.0-0.1) 08/29/18 13:46 Seg Neutrophils % 70.2 % (40.0-70.0) H 08/29/18 13:46 Seg Neutrophils # 5.1 K/mm3 (1.8-7.7) 08/29/18 13:46 D-Dimer 226.69 ng/mlDDU (0-234) 08/28/18 16:02 Sodium 139 mmol/L (137-145) 08/30/18 16:01 Potassium 3.7 mmol/L (3.6-5.0) 08/30/18 16:01 Chloride 105.1 mmol/L (98-107) 08/30/18 16:01 Carbon Dioxide 24 mmol/L (22-30) 08/30/18 16:01 Anion Gap 14 mmol/L 08/30/18 16:01 BUN 28 mg/dL (9-20) H 08/30/18 16:01 Creatinine 0.9 mg/dL (0.8-1.5) 08/30/18 16:01 Estimated GFR > 60 ml/min 08/30/18 16:01 BUN/Creatinine Ratio 31 % 08/30/18 16:01 Glucose 232 mg/dL (75-100) H 08/30/18 16:01 POC Glucose 54 (70-105) L 09/02/18 08:21 Calcium 8.5 mg/dL (8.4-10.2) 08/30/18 16:01 Troponin T 0.017 ng/mL (0.00-0.029) 08/29/18 13:46 NT-Pro-B Natriuret Pep 233.2 pg/mL (0-900) 08/28/18 16:02 Triglycerides 136 mg/dL (2-149) 08/28/18 13:18 Cholesterol 162 mg/dL (50-199) 08/28/18 13:18 LDL Cholesterol Direct 85 mg/dL (50-130) 08/28/18 13:18 HDL Cholesterol 58 mg/dL (40-59) 08/28/18 13:18 Cholesterol/HDL Ratio 2.79 % 08/28/18 13:18 Nutrition/Malnutrition Assess - Dietary Evaluation Nutrition/Malnutrition Findings: Nutrition Notes Start: 08/29/18 14:02 Freq: Status: Active Protocol: Document 09/01/18 10:59 TW (Rec: 09/01/18 11:02 TW [email or web address]) Co-Sign 09/01/18 10:59 LP Nutrition Notes Initial or Follow up Reassessment Current Diagnosis Diabetes,Hypertension,Heart Failure Other Pertinent Diagnosis Depression Current Diet Cardiac/Consistent CHO w/ Glucerna daily Labs/Tests Reviewed Pertinent Medications Reviewed Height 5 ft 8 in Weight 49.3 kg [place] Body Weight (kg) 70.00 BMI 16.5 Subjective/Other Information PT stated he has had DM for 20 years and refused DM education. He stated he is eating well and has a good appetitie. Percent of energy/protein needs met: 99%/100% Burn Absent Trauma Absent #1 Nutrition Diagnosis Underweight Diagnosis Progress(for reassessment Continues documentation) Is patient on ventilator? No Is Patient Ambulatory and/or Out of Bed Yes REE-([place]-St. Jeor-ambulatory/OOB) [ 1615.250 NUTR.MSJOOB] Kcal/Kg value to use for calculation 40 Approximate Energy Requirements Using 1972 kcal/Kg Calculation Used for Recommendations Kcal/kg Additional Notes Protein Needs: 58-72g (1.2-1. 5g/kg) Fluid Needs: 1 ml/kcal Nutrition Intervention Change Diet Order: Cardiac/Consistent CHO Goal #1 Meet at least 75% of calorie and protein needs via PO intake Anticipated Discharge Needs: Cardiac/Consistent CHO Follow-Up By: 09/08/18 Additional Comments Follow up for stable intakes
[2018-09-02] MEDS: HumaLOG SUB-Q SCH ×4 (14:23→22:00)
[2018-09-02] MEDS: LANTUS SUB-Q SCH (22:00)
[2018-09-03] MEDS: HumaLOG SUB-Q SCH ×4 (07:30→22:56)
[2018-09-03] MEDS: THERAGRAN Tab PO SCH (10:00)
[2018-09-03] MEDS: PERIACTIN PO SCH ×2 (10:00→22:57)
[2018-09-03] MEDS: PEPCID PO SCH ×2 (10:00→22:57)
[2018-09-03] MEDS: LOPRESSOR PO SCH (10:00)
[2018-09-03] MEDS: CYMBALTA PO SCH (10:00)
--- NOTE | 2018-09-03 10:09 | Progress Note ---
Assessment and Plan Assessment and plan: (1) Chest pain with mildly elevated troponin - Cardiac enzymes were negative, patient denied chest pain - Patient refused a stress test and echocardiogram this admission. - Patient has a recent cardiac workup at [facility] (2) History of Diastolic CHF -Patient refused echo and stress test (3) HTN (hypertension) -Stable (4) DM2 with hypoglycemia - insulin regimen adjusted, will monitor (5) Hyperkalemia, resolved (6) Significant weight loss -pt refused CAT scan of chest and abdomen (7) DVT prophylaxis SCD to BLE while in bed. Disposition: patient is awaiting placement History Interval history: Patient has no new complaints. Hospitalist Physical - Constitutional Vitals: Temp Pulse Resp BP Pulse Ox 98.8 F 94 H 20 114/61 99 09/03/18 09:14 09/03/18 09:14 09/03/18 09:14 09/03/18 09:14 09/03/18 09:14 General appearance: Present: no acute distress, cachectic - EENT Eyes: Present: PERRL, EOM intact ENT: hearing intact, clear oral mucosa - Neck Neck: Present: supple - Respiratory Respiratory effort: normal Respiratory: bilateral: CTA - Cardiovascular Rhythm: regular Heart Sounds: Present: S1 & S2 - Extremities Extremities: No edema - Abdominal General gastrointestinal: soft, non-tender, non-distended, normal bowel sounds - Neurologic Neurologic: CNII-XII intact Results - Labs CBC & Chem 7: 08/29/18 13:46 08/30/18 16:01 Labs: Laboratory Last Values WBC 7.3 K/mm3 (4.5-11.0) 08/29/18 13:46 RBC 3.97 M/mm3 (3.65-5.03) 08/29/18 13:46 Hgb 11.3 gm/dl (11.8-15.2) L 08/29/18 13:46 Hct 33.9 % (35.5-45.6) L 08/29/18 13:46 MCV 86 fl (84-94) 08/29/18 13:46 MCH 29 pg (28-32) 08/29/18 13:46 MCHC 33 % (32-34) 08/29/18 13:46 RDW 13.7 % (13.2-15.2) 08/29/18 13:46 Plt Count 211 K/mm3 (140-440) 08/29/18 13:46 Lymph % (Auto) 21.9 % (13.4-35.0) 08/29/18 13:46 [place] % (Auto) 6.1 % (0.0-7.3) 08/29/18 13:46 Eos % (Auto) 1.0 % (0.0-4.3) 08/29/18 13:46 Baso % (Auto) 0.8 % (0.0-1.8) 08/29/18 13:46 Lymph # 1.6 K/mm3 (1.2-5.4) 08/29/18 13:46 [place] # 0.4 K/mm3 (0.0-0.8) 08/29/18 13:46 Eos # 0.1 K/mm3 (0.0-0.4) 08/29/18 13:46 Baso # 0.1 K/mm3 (0.0-0.1) 08/29/18 13:46 Seg Neutrophils % 70.2 % (40.0-70.0) H 08/29/18 13:46 Seg Neutrophils # 5.1 K/mm3 (1.8-7.7) 08/29/18 13:46 D-Dimer 226.69 ng/mlDDU (0-234) 08/28/18 16:02 Sodium 139 mmol/L (137-145) 08/30/18 16:01 Potassium 3.7 mmol/L (3.6-5.0) 08/30/18 16:01 Chloride 105.1 mmol/L (98-107) 08/30/18 16:01 Carbon Dioxide 24 mmol/L (22-30) 08/30/18 16:01 Anion Gap 14 mmol/L 08/30/18 16:01 BUN 28 mg/dL (9-20) H 08/30/18 16:01 Creatinine 0.9 mg/dL (0.8-1.5) 08/30/18 16:01 Estimated GFR > 60 ml/min 08/30/18 16:01 BUN/Creatinine Ratio 31 % 08/30/18 16:01 Glucose 232 mg/dL (75-100) H 08/30/18 16:01 POC Glucose 79 (70-105) 09/02/18 13:53 Calcium 8.5 mg/dL (8.4-10.2) 08/30/18 16:01 Troponin T 0.017 ng/mL (0.00-0.029) 08/29/18 13:46 NT-Pro-B Natriuret Pep 233.2 pg/mL (0-900) 08/28/18 16:02 Triglycerides 136 mg/dL (2-149) 08/28/18 13:18 Cholesterol 162 mg/dL (50-199) 08/28/18 13:18 LDL Cholesterol Direct 85 mg/dL (50-130) 08/28/18 13:18 HDL Cholesterol 58 mg/dL (40-59) 08/28/18 13:18 Cholesterol/HDL Ratio 2.79 % 08/28/18 13:18 Nutrition/Malnutrition Assess - Dietary Evaluation Nutrition/Malnutrition Findings: Nutrition Notes Start: 08/29/18 14:02 Freq: Status: Active Protocol: Document 09/01/18 10:59 TW (Rec: 09/01/18 11:02 TW [email or web address]) Co-Sign 09/01/18 10:59 LP Nutrition Notes Initial or Follow up Reassessment Current Diagnosis Diabetes,Hypertension,Heart Failure Other Pertinent Diagnosis Depression Current Diet Cardiac/Consistent CHO w/ Glucerna daily Labs/Tests Reviewed Pertinent Medications Reviewed Height 5 ft 8 in Weight 49.3 kg [place] Body Weight (kg) 70.00 BMI 16.5 Subjective/Other Information PT stated he has had DM for 20 years and refused DM education. He stated he is eating well and has a good appetitie. Percent of energy/protein needs met: 99%/100% Burn Absent Trauma Absent #1 Nutrition Diagnosis Underweight Diagnosis Progress(for reassessment Continues documentation) Is patient on ventilator? No Is Patient Ambulatory and/or Out of Bed Yes REE-([place]-St. Jeor-ambulatory/OOB) [ 1615.250 NUTR.MSJOOB] Kcal/Kg value to use for calculation 40 Approximate Energy Requirements Using 1972 kcal/Kg Calculation Used for Recommendations Kcal/kg Additional Notes Protein Needs: 58-72g (1.2-1. 5g/kg) Fluid Needs: 1 ml/kcal Nutrition Intervention Change Diet Order: Cardiac/Consistent CHO Goal #1 Meet at least 75% of calorie and protein needs via PO intake Anticipated Discharge Needs: Cardiac/Consistent CHO Follow-Up By: 09/08/18 Additional Comments Follow up for stable intakes
[2018-09-03] MEDS: SODIUM CHLORIDE FLUSH SYRINGE 10 ML IV SCH ×2 (11:56→22:57)
[2018-09-04] MEDS: HumaLOG SUB-Q SCH ×4 (07:30→21:48)
[2018-09-04] MEDS: LOPRESSOR PO SCH (09:06)
[2018-09-04] MEDS: THERAGRAN Tab PO SCH (09:06)
[2018-09-04] MEDS: CYMBALTA PO SCH (09:06)
[2018-09-04] MEDS: PEPCID PO SCH ×2 (09:06→21:50)
[2018-09-04] MEDS: PERIACTIN PO SCH ×2 (09:07→21:50)
[2018-09-04] MEDS: SODIUM CHLORIDE FLUSH SYRINGE 10 ML IV SCH ×2 (09:08→21:50)
[2018-09-04 09:28] LABS: Alanine Aminotransferase 16 units/L (7-56); Albumin 3.6 g/dL (3.9-5); BUN/Creatinine Ratio 18; Blood Urea Nitrogen 20 mg/dL (9-20); Calcium 8.9 mg/dL (8.4-10.2); Hemolysis Index 15
--- NOTE | 2018-09-04 15:09 | Progress Note ---
Assessment and Plan Assessment and plan: (1) Chest pain with mildly elevated troponin - Patient refused a stress test and echocardiogram this admission. - Patient has a recent cardiac workup at [facility] (2) History of Diastolic CHF -Patient refused echo and stress test (3) HTN (hypertension) -Stable (4) DM2 - BG stable (5) Hyperkalemia, resolved (6) Severe malnutrition -Gardener consulted (7) DVT prophylaxis SCD to BLE while in bed. Disposition: patient is awaiting placement History Interval history: He was reported that the patient felt dizzy while he was walking to the bathroom Hospitalist Physical - Constitutional Vitals: Temp Pulse Resp BP Pulse Ox 97.9 F 101 H 18 129/79 98 09/04/18 13:13 09/04/18 13:13 09/04/18 13:13 09/04/18 13:13 09/04/18 13:13 General appearance: Present: no acute distress, cachectic - EENT Eyes: Present: PERRL, EOM intact - Neck Neck: Present: supple - Respiratory Respiratory effort: normal Respiratory: bilateral: CTA - Cardiovascular Rhythm: regular Heart Sounds: Present: S1 & S2, systolic murmur - Extremities Extremities: No edema - Abdominal General gastrointestinal: soft, non-tender, non-distended, normal bowel sounds - Neurologic Neurologic: CNII-XII intact Results - Labs CBC & Chem 7: 08/29/18 13:46 09/04/18 08:07 Labs: Laboratory Last Values WBC 7.3 K/mm3 (4.5-11.0) 08/29/18 13:46 RBC 3.97 M/mm3 (3.65-5.03) 08/29/18 13:46 Hgb 11.3 gm/dl (11.8-15.2) L 08/29/18 13:46 Hct 33.9 % (35.5-45.6) L 08/29/18 13:46 MCV 86 fl (84-94) 08/29/18 13:46 MCH 29 pg (28-32) 08/29/18 13:46 MCHC 33 % (32-34) 08/29/18 13:46 RDW 13.7 % (13.2-15.2) 08/29/18 13:46 Plt Count 211 K/mm3 (140-440) 08/29/18 13:46 Lymph % (Auto) 21.9 % (13.4-35.0) 08/29/18 13:46 [place] % (Auto) 6.1 % (0.0-7.3) 08/29/18 13:46 Eos % (Auto) 1.0 % (0.0-4.3) 08/29/18 13:46 Baso % (Auto) 0.8 % (0.0-1.8) 08/29/18 13:46 Lymph # 1.6 K/mm3 (1.2-5.4) 08/29/18 13:46 [place] # 0.4 K/mm3 (0.0-0.8) 08/29/18 13:46 Eos # 0.1 K/mm3 (0.0-0.4) 08/29/18 13:46 Baso # 0.1 K/mm3 (0.0-0.1) 08/29/18 13:46 Seg Neutrophils % 70.2 % (40.0-70.0) H 08/29/18 13:46 Seg Neutrophils # 5.1 K/mm3 (1.8-7.7) 08/29/18 13:46 D-Dimer 226.69 ng/mlDDU (0-234) 08/28/18 16:02 Sodium 143 mmol/L (137-145) 09/04/18 08:07 Potassium 4.2 mmol/L (3.6-5.0) 09/04/18 08:07 Chloride 100.6 mmol/L (98-107) 09/04/18 08:07 Carbon Dioxide 28 mmol/L (22-30) 09/04/18 08:07 Anion Gap 19 mmol/L 09/04/18 08:07 BUN 20 mg/dL (9-20) 09/04/18 08:07 Creatinine 1.1 mg/dL (0.8-1.5) 09/04/18 08:07 Estimated GFR > 60 ml/min 09/04/18 08:07 BUN/Creatinine Ratio 18 % 09/04/18 08:07 Glucose 92 mg/dL (75-100) 09/04/18 08:07 POC Glucose 205 (70-105) H 09/04/18 11:19 Calcium 8.9 mg/dL (8.4-10.2) 09/04/18 08:07 Total Bilirubin 0.50 mg/dL (0.1-1.2) 09/04/18 08:07 AST 18 units/L (5-40) 09/04/18 08:07 ALT 16 units/L (7-56) 09/04/18 08:07 Alkaline Phosphatase 98 units/L (35-129) 09/04/18 08:07 Troponin T 0.017 ng/mL (0.00-0.029) 08/29/18 13:46 NT-Pro-B Natriuret Pep 233.2 pg/mL (0-900) 08/28/18 16:02 Total Protein 6.5 g/dL (6.3-8.2) 09/04/18 08:07 Albumin 3.6 g/dL (3.9-5) L 09/04/18 08:07 Albumin/Globulin Ratio 1.2 % 09/04/18 08:07 Triglycerides 136 mg/dL (2-149) 08/28/18 13:18 Cholesterol 162 mg/dL (50-199) 08/28/18 13:18 LDL Cholesterol Direct 85 mg/dL (50-130) 08/28/18 13:18 HDL Cholesterol 58 mg/dL (40-59) 08/28/18 13:18 Cholesterol/HDL Ratio 2.79 % 08/28/18 13:18 Active Medications - Current Medications Current Medications: Generic Name Dose Route Start Last Admin Trade Name Freq PRN Reason Stop Dose Admin Acetaminophen 650 mg 08/28/18 15:51 Tylenol PO Q4H PRN Pain MILD(1-3)/Fever >100.5/OLIVA Albuterol 2.5 mg 08/28/18 15:51 Proventil IH Q4HRT PRN Shortness Of Breath Atorvastatin Calcium 20 mg 08/28/18 22:00 09/03/18 22:57 Lipitor PO Not Given QHS ANNAMARIA Cyproheptadine HCl 4 mg 08/28/18 22:00 09/04/18 09:07 Periactin PO 4 mg BID ANNAMARIA Administration Duloxetine HCl 30 mg 08/29/18 10:00 09/04/18 09:06 Cymbalta PO 30 mg QAM ANNAMARIA Administration Famotidine 20 mg 08/28/18 22:00 09/04/18 09:06 Pepcid PO 20 mg BID ANNAMARIA Administration Insulin Human Lispro 0 unit 08/29/18 11:30 09/04/18 12:42 Humalog SUB-Q 4 unit ACHS ANNAMARIA Administration Protocol Metoprolol Tartrate 25 mg 08/29/18 10:00 09/04/18 09:06 Lopressor PO 25 mg DAILY ANNAMARIA Administration Morphine Sulfate 2 mg 08/28/18 15:51 Morphine IV Q4H PRN Pain, Moderate (4-6) Multivitamins 1 each 08/29/18 10:00 09/04/18 09:06 Theragran Tab PO 1 each QDAY ANNAMARIA Administration Nitroglycerin 0.4 mg 08/28/18 15:51 Nitrostat SL Q5M PRN Chest Pain Ondansetron HCl 4 mg 08/28/18 15:51 Zofran IV Q8H PRN Nausea And Vomiting Sodium Chloride 10 ml 08/28/18 22:00 09/04/18 09:08 Sodium Chloride Flush Syringe 10 Ml IV Not Given BID ANNAMARIA Sodium Chloride 10 ml 08/28/18 15:51 Sodium Chloride Flush Syringe 10 Ml IV PRN PRN LINE FLUSH Nutrition/Malnutrition Assess - Dietary Evaluation Nutrition/Malnutrition Findings: Nutrition Notes Start: 08/29/18 14:02 Freq: Status: Active Protocol: Document 09/03/18 17:08 RM (Rec: 09/03/18 17:09 [id number]) Nutrition Notes Need for Assessment generated from: MD Order Initial or Follow up Brief Note Subjective/Other Information Consulted for malnutrition. Pt already being followed. Nutrition Intervention Follow-Up By: 09/08/18 Additional Comments Follow up for stable intakes
[2018-09-05 03:00] LABS: Bilirubin,Urine NEG (Negative); Blood,Urine NEG (Negative); Mucus,Urine FEW /HPF; WBC,Urine < 1.0 /HPF (0.0-6.0)
[2018-09-05 03:29] LABS: Color,Urine Dark Yellow (Yellow)
[2018-09-05] MEDS: HumaLOG SUB-Q SCH ×4 (08:13→23:55)
[2018-09-05] MEDS: THERAGRAN Tab PO SCH (09:16)
[2018-09-05] MEDS: LOPRESSOR PO SCH (09:17)
[2018-09-05] MEDS: PERIACTIN PO SCH ×2 (09:17→23:38)
[2018-09-05] MEDS: CYMBALTA PO SCH (09:18)
[2018-09-05] MEDS: PEPCID PO SCH ×2 (09:18→23:38)
[2018-09-05] MEDS: SODIUM CHLORIDE FLUSH SYRINGE 10 ML IV SCH ×2 (09:19→23:39)
--- NOTE | 2018-09-05 09:26 | Progress Note ---
Assessment and Plan Assessment and plan: Chest pain with mildly elevated troponin - Patient refused a stress test and echocardiogram this admission. - Patient has a recent cardiac workup at [facility] History of Diastolic CHF -Patient refused echo and stress test HTN (hypertension) -Stable DM2 - BG stable Hyperkalemia, resolved Severe protein calorie malnutrition -Sheep Sticker consulted DVT prophylaxis SCD to BLE while in bed. Disposition: patient is awaiting placement History Interval history: No new issues overnight. Patient denies chest pain or shortness of breath. Hospitalist Physical - Constitutional Vitals: Temp Pulse Resp BP Pulse Ox 97.8 F 103 H 18 113/57 99 09/05/18 07:54 09/05/18 09:17 09/05/18 07:54 09/05/18 09:17 09/05/18 07:54 General appearance: Present: no acute distress, cachectic - EENT Eyes: Present: PERRL, EOM intact ENT: hearing intact, clear oral mucosa, dentition normal - Neck Neck: Present: supple, normal ROM - Respiratory Respiratory effort: normal Respiratory: bilateral: CTA - Cardiovascular Rhythm: regular Heart Sounds: Present: S1 & S2. Absent: gallop, rub - Extremities Extremities: no ischemia, No edema, Full ROM - Abdominal General gastrointestinal: soft, non-tender, non-distended, normal bowel sounds - Integumentary Integumentary: Present: clear, warm, dry - Neurologic Neurologic: CNII-XII intact, moves all extremities Results - Labs CBC & Chem 7: 08/29/18 13:46 09/04/18 08:07 Labs: Laboratory Last Values WBC 7.3 K/mm3 (4.5-11.0) 08/29/18 13:46 RBC 3.97 M/mm3 (3.65-5.03) 08/29/18 13:46 Hgb 11.3 gm/dl (11.8-15.2) L 08/29/18 13:46 Hct 33.9 % (35.5-45.6) L 08/29/18 13:46 MCV 86 fl (84-94) 08/29/18 13:46 MCH 29 pg (28-32) 08/29/18 13:46 MCHC 33 % (32-34) 08/29/18 13:46 RDW 13.7 % (13.2-15.2) 08/29/18 13:46 Plt Count 211 K/mm3 (140-440) 08/29/18 13:46 Lymph % (Auto) 21.9 % (13.4-35.0) 08/29/18 13:46 [place] % (Auto) 6.1 % (0.0-7.3) 08/29/18 13:46 Eos % (Auto) 1.0 % (0.0-4.3) 08/29/18 13:46 Baso % (Auto) 0.8 % (0.0-1.8) 08/29/18 13:46 Lymph # 1.6 K/mm3 (1.2-5.4) 08/29/18 13:46 [place] # 0.4 K/mm3 (0.0-0.8) 08/29/18 13:46 Eos # 0.1 K/mm3 (0.0-0.4) 08/29/18 13:46 Baso # 0.1 K/mm3 (0.0-0.1) 08/29/18 13:46 Seg Neutrophils % 70.2 % (40.0-70.0) H 08/29/18 13:46 Seg Neutrophils # 5.1 K/mm3 (1.8-7.7) 08/29/18 13:46 D-Dimer 226.69 ng/mlDDU (0-234) 08/28/18 16:02 Sodium 143 mmol/L (137-145) 09/04/18 08:07 Potassium 4.2 mmol/L (3.6-5.0) 09/04/18 08:07 Chloride 100.6 mmol/L (98-107) 09/04/18 08:07 Carbon Dioxide 28 mmol/L (22-30) 09/04/18 08:07 Anion Gap 19 mmol/L 09/04/18 08:07 BUN 20 mg/dL (9-20) 09/04/18 08:07 Creatinine 1.1 mg/dL (0.8-1.5) 09/04/18 08:07 Estimated GFR > 60 ml/min 09/04/18 08:07 BUN/Creatinine Ratio 18 % 09/04/18 08:07 Glucose 92 mg/dL (75-100) 09/04/18 08:07 POC Glucose 113 (70-105) H 09/05/18 08:00 Calcium 8.9 mg/dL (8.4-10.2) 09/04/18 08:07 Total Bilirubin 0.50 mg/dL (0.1-1.2) 09/04/18 08:07 AST 18 units/L (5-40) 09/04/18 08:07 ALT 16 units/L (7-56) 09/04/18 08:07 Alkaline Phosphatase 98 units/L (35-129) 09/04/18 08:07 Troponin T 0.017 ng/mL (0.00-0.029) 08/29/18 13:46 NT-Pro-B Natriuret Pep 233.2 pg/mL (0-900) 08/28/18 16:02 Total Protein 6.5 g/dL (6.3-8.2) 09/04/18 08:07 Albumin 3.6 g/dL (3.9-5) L 09/04/18 08:07 Albumin/Globulin Ratio 1.2 % 09/04/18 08:07 Triglycerides 136 mg/dL (2-149) 08/28/18 13:18 Cholesterol 162 mg/dL (50-199) 08/28/18 13:18 LDL Cholesterol Direct 85 mg/dL (50-130) 08/28/18 13:18 HDL Cholesterol 58 mg/dL (40-59) 08/28/18 13:18 Cholesterol/HDL Ratio 2.79 % 08/28/18 13:18 Urine Color Dark yellow (Yellow) 08/29/18 13:00 Urine Turbidity Clear (Clear) 08/29/18 13:00 Urine pH 5.0 (5.0-7.0) 08/29/18 13:00 Ur Specific [place] 1.029 (1.003-1.030) 08/29/18 13:00 Urine Protein 30 mg/dl mg/dL (Negative) 08/29/18 13:00 Urine Glucose (UA) 50 mg/dL (Negative) 08/29/18 13:00 Urine Ketones Neg mg/dL (Negative) 08/29/18 13:00 Urine Blood Neg (Negative) 08/29/18 13:00 Urine Nitrite Neg (Negative) 08/29/18 13:00 Urine Bilirubin Neg (Negative) 08/29/18 13:00 Urine Urobilinogen 2.0 mg/dL (<2.0) 08/29/18 13:00 Ur Leukocyte Esterase Neg (Negative) 08/29/18 13:00 Urine WBC (Auto) < 1.0 /HPF (0.0-6.0) 08/29/18 13:00 Urine RBC (Auto) 1.0 /HPF (0.0-6.0) 08/29/18 13:00 Urine Mucus Few /HPF 08/29/18 13:00 Active Medications - Current Medications Current Medications: Generic Name Dose Route Start Last Admin Trade Name Freq PRN Reason Stop Dose Admin Acetaminophen 650 mg 08/28/18 15:51 09/05/18 09:15 Tylenol PO 650 mg Q4H PRN Administration Pain MILD(1-3)/Fever >100.5/OLIVA Albuterol 2.5 mg 08/28/18 15:51 Proventil IH Q4HRT PRN Shortness Of Breath Atorvastatin Calcium 20 mg 08/28/18 22:00 09/04/18 21:50 Lipitor PO Not Given QHS [facility] Cyproheptadine HCl 4 mg 08/28/18 22:00 09/05/18 09:17 Periactin PO Not Given BID [facility] Duloxetine HCl 30 mg 08/29/18 10:00 09/05/18 09:18 Cymbalta PO Not Given QAM [facility] Famotidine 20 mg 08/28/18 22:00 09/05/18 09:18 Pepcid PO Not Given BID [facility] Insulin Human Lispro 0 unit 08/29/18 11:30 09/05/18 08:13 Humalog SUB-Q Not Given ACHS [facility] Protocol Metoprolol Tartrate 25 mg 08/29/18 10:00 09/05/18 09:17 Lopressor PO Not Given DAILY [facility] Morphine Sulfate 2 mg 08/28/18 15:51 Morphine IV Q4H PRN Pain, Moderate (4-6) Multivitamins 1 each 08/29/18 10:00 09/05/18 09:16 Theragran Tab PO 1 each QDAY [facility] Administration Nitroglycerin 0.4 mg 08/28/18 15:51 Nitrostat SL Q5M PRN Chest Pain Ondansetron HCl 4 mg 08/28/18 15:51 Zofran IV Q8H PRN Nausea And Vomiting Sodium Chloride 10 ml 08/28/18 22:00 09/05/18 09:19 Sodium Chloride Flush Syringe 10 Ml IV Not Given BID ANNAMARIA Sodium Chloride 10 ml 08/28/18 15:51 Sodium Chloride Flush Syringe 10 Ml IV PRN PRN LINE FLUSH Nutrition/Malnutrition Assess - Dietary Evaluation Nutrition/Malnutrition Findings: Nutrition Notes Start: 08/29/18 14:02 Freq: Status: Active Protocol: Document 09/03/18 17:08 RM (Rec: 09/03/18 17:09 [id number]) Nutrition Notes Need for Assessment generated from: MD Order Initial or Follow up Brief Note Subjective/Other Information Consulted for malnutrition. Pt already being followed. Nutrition Intervention Follow-Up By: 09/08/18 Additional Comments Follow up for stable intakes
[2018-09-06] MEDS: HumaLOG SUB-Q SCH ×4 (08:21→22:30)
--- NOTE | 2018-09-06 09:16 | Progress Note ---
Assessment and Plan Assessment and plan: Chest pain with mildly elevated troponin - Patient refused a stress test and echocardiogram this admission. - Patient has a recent cardiac workup at [facility] History of Diastolic CHF -Patient refused echo and stress test HTN (hypertension) -Stable DM2 - BG stable Hyperkalemia, resolved Severe protein calorie malnutrition -Sushi Chef consulted DVT prophylaxis SCD to BLE while in bed. Depression. Continue Cymbalta 30 mg PO daily Disposition: patient is awaiting placement. Patient is a level II. History Interval history: No new issues overnight. Patient denies chest pain or shortness of breath. Hospitalist Physical - Constitutional Vitals: Temp Pulse Resp BP Pulse Ox 98.6 F 102 H 18 123/61 98 09/06/18 07:28 09/06/18 07:28 09/06/18 07:28 09/06/18 07:28 09/06/18 07:28 General appearance: Present: no acute distress, cachectic - EENT Eyes: Present: PERRL, EOM intact ENT: hearing intact, clear oral mucosa, dentition normal - Neck Neck: Present: supple, normal ROM - Respiratory Respiratory effort: normal Respiratory: bilateral: CTA - Cardiovascular Rhythm: regular Heart Sounds: Present: S1 & S2. Absent: gallop, rub - Extremities Extremities: no ischemia, No edema, Full ROM - Abdominal General gastrointestinal: soft, non-tender, non-distended, normal bowel sounds - Integumentary Integumentary: Present: clear, warm, dry - Neurologic Neurologic: CNII-XII intact, moves all extremities Results - Labs CBC & Chem 7: 08/29/18 13:46 09/04/18 08:07 Labs: Laboratory Last Values WBC 7.3 K/mm3 (4.5-11.0) 08/29/18 13:46 RBC 3.97 M/mm3 (3.65-5.03) 08/29/18 13:46 Hgb 11.3 gm/dl (11.8-15.2) L 08/29/18 13:46 Hct 33.9 % (35.5-45.6) L 08/29/18 13:46 MCV 86 fl (84-94) 08/29/18 13:46 MCH 29 pg (28-32) 08/29/18 13:46 MCHC 33 % (32-34) 08/29/18 13:46 RDW 13.7 % (13.2-15.2) 08/29/18 13:46 Plt Count 211 K/mm3 (140-440) 08/29/18 13:46 Lymph % (Auto) 21.9 % (13.4-35.0) 08/29/18 13:46 [place] % (Auto) 6.1 % (0.0-7.3) 08/29/18 13:46 Eos % (Auto) 1.0 % (0.0-4.3) 08/29/18 13:46 Baso % (Auto) 0.8 % (0.0-1.8) 08/29/18 13:46 Lymph # 1.6 K/mm3 (1.2-5.4) 08/29/18 13:46 [place] # 0.4 K/mm3 (0.0-0.8) 08/29/18 13:46 Eos # 0.1 K/mm3 (0.0-0.4) 08/29/18 13:46 Baso # 0.1 K/mm3 (0.0-0.1) 08/29/18 13:46 Seg Neutrophils % 70.2 % (40.0-70.0) H 08/29/18 13:46 Seg Neutrophils # 5.1 K/mm3 (1.8-7.7) 08/29/18 13:46 D-Dimer 226.69 ng/mlDDU (0-234) 08/28/18 16:02 Sodium 143 mmol/L (137-145) 09/04/18 08:07 Potassium 4.2 mmol/L (3.6-5.0) 09/04/18 08:07 Chloride 100.6 mmol/L (98-107) 09/04/18 08:07 Carbon Dioxide 28 mmol/L (22-30) 09/04/18 08:07 Anion Gap 19 mmol/L 09/04/18 08:07 BUN 20 mg/dL (9-20) 09/04/18 08:07 Creatinine 1.1 mg/dL (0.8-1.5) 09/04/18 08:07 Estimated GFR > 60 ml/min 09/04/18 08:07 BUN/Creatinine Ratio 18 % 09/04/18 08:07 Glucose 92 mg/dL (75-100) 09/04/18 08:07 POC Glucose 103 (70-105) 09/06/18 07:34 Calcium 8.9 mg/dL (8.4-10.2) 09/04/18 08:07 Total Bilirubin 0.50 mg/dL (0.1-1.2) 09/04/18 08:07 AST 18 units/L (5-40) 09/04/18 08:07 ALT 16 units/L (7-56) 09/04/18 08:07 Alkaline Phosphatase 98 units/L (35-129) 09/04/18 08:07 Troponin T 0.017 ng/mL (0.00-0.029) 08/29/18 13:46 NT-Pro-B Natriuret Pep 233.2 pg/mL (0-900) 08/28/18 16:02 Total Protein 6.5 g/dL (6.3-8.2) 09/04/18 08:07 Albumin 3.6 g/dL (3.9-5) L 09/04/18 08:07 Albumin/Globulin Ratio 1.2 % 09/04/18 08:07 Triglycerides 136 mg/dL (2-149) 08/28/18 13:18 Cholesterol 162 mg/dL (50-199) 08/28/18 13:18 LDL Cholesterol Direct 85 mg/dL (50-130) 08/28/18 13:18 HDL Cholesterol 58 mg/dL (40-59) 08/28/18 13:18 Cholesterol/HDL Ratio 2.79 % 08/28/18 13:18 Urine Color Dark yellow (Yellow) 08/29/18 13:00 Urine Turbidity Clear (Clear) 08/29/18 13:00 Urine pH 5.0 (5.0-7.0) 08/29/18 13:00 Ur Specific [place] 1.029 (1.003-1.030) 08/29/18 13:00 Urine Protein 30 mg/dl mg/dL (Negative) 08/29/18 13:00 Urine Glucose (UA) 50 mg/dL (Negative) 08/29/18 13:00 Urine Ketones Neg mg/dL (Negative) 08/29/18 13:00 Urine Blood Neg (Negative) 08/29/18 13:00 Urine Nitrite Neg (Negative) 08/29/18 13:00 Urine Bilirubin Neg (Negative) 08/29/18 13:00 Urine Urobilinogen 2.0 mg/dL (<2.0) 08/29/18 13:00 Ur Leukocyte Esterase Neg (Negative) 08/29/18 13:00 Urine WBC (Auto) < 1.0 /HPF (0.0-6.0) 08/29/18 13:00 Urine RBC (Auto) 1.0 /HPF (0.0-6.0) 08/29/18 13:00 Urine Mucus Few /HPF 08/29/18 13:00 Active Medications - Current Medications Current Medications: Generic Name Dose Route Start Last Admin Trade Name Freq PRN Reason Stop Dose Admin Acetaminophen 650 mg 08/28/18 15:51 09/05/18 09:15 Tylenol PO 650 mg Q4H PRN Administration Pain MILD(1-3)/Fever >100.5/OLIVA Albuterol 2.5 mg 08/28/18 15:51 Proventil IH Q4HRT PRN Shortness Of Breath Atorvastatin Calcium 20 mg 08/28/18 22:00 09/05/18 23:38 Lipitor PO Not Given QHS [facility] Cyproheptadine HCl 4 mg 08/28/18 22:00 09/05/18 23:38 Periactin PO Not Given BID [facility] Duloxetine HCl 30 mg 08/29/18 10:00 09/05/18 09:18 Cymbalta PO Not Given QAM [facility] Famotidine 20 mg 08/28/18 22:00 09/05/18 23:38 Pepcid PO Not Given BID [facility] Insulin Human Lispro 0 unit 08/29/18 11:30 09/06/18 08:21 Humalog SUB-Q Not Given ACHS [facility] Protocol Metoprolol Tartrate 25 mg 08/29/18 10:00 09/05/18 09:17 Lopressor PO Not Given DAILY [facility] Morphine Sulfate 2 mg 08/28/18 15:51 Morphine IV Q4H PRN Pain, Moderate (4-6) Multivitamins 1 each 08/29/18 10:00 09/05/18 09:16 Theragran Tab PO 1 each QDAY ANNAMARIA Administration Nitroglycerin 0.4 mg 08/28/18 15:51 Nitrostat SL Q5M PRN Chest Pain Ondansetron HCl 4 mg 08/28/18 15:51 Zofran IV Q8H PRN Nausea And Vomiting Sodium Chloride 10 ml 08/28/18 22:00 09/05/18 23:39 Sodium Chloride Flush Syringe 10 Ml IV Not Given BID ANNAMARIA Sodium Chloride 10 ml 08/28/18 15:51 Sodium Chloride Flush Syringe 10 Ml IV PRN PRN LINE FLUSH Nutrition/Malnutrition Assess - Dietary Evaluation Nutrition/Malnutrition Findings: Nutrition Notes Start: 08/29/18 14:02 Freq: Status: Active Protocol: Document 09/03/18 17:08 RM (Rec: 09/03/18 17:09 [id number]) Nutrition Notes Need for Assessment generated from: MD Order Initial or Follow up Brief Note Subjective/Other Information Consulted for malnutrition. Pt already being followed. Nutrition Intervention Follow-Up By: 09/08/18 Additional Comments Follow up for stable intakes
[2018-09-06] MEDS: SODIUM CHLORIDE FLUSH SYRINGE 10 ML IV SCH ×2 (10:19→22:11)
[2018-09-06] MEDS: CYMBALTA PO SCH (13:35)
[2018-09-06] MEDS: LOPRESSOR PO SCH (13:35)
[2018-09-06] MEDS: PEPCID PO SCH ×2 (13:36→22:11)
[2018-09-06] MEDS: PERIACTIN PO SCH ×2 (13:36→22:11)
[2018-09-06] MEDS: THERAGRAN Tab PO SCH (13:36)
[2018-09-07] MEDS: HumaLOG SUB-Q SCH ×4 (09:14→21:07)
[2018-09-07] MEDS: CYMBALTA PO SCH (11:27)
[2018-09-07] MEDS: LOPRESSOR PO SCH (11:28)
[2018-09-07] MEDS: SODIUM CHLORIDE FLUSH SYRINGE 10 ML IV SCH ×2 (11:28→21:09)
[2018-09-07] MEDS: PERIACTIN PO SCH ×2 (11:28→21:08)
[2018-09-07] MEDS: PEPCID PO SCH ×2 (11:28→21:08)
[2018-09-07] MEDS: THERAGRAN Tab PO SCH (11:29)
--- NOTE | 2018-09-07 11:47 | Progress Note ---
Assessment and Plan Assessment and plan: Chest pain with mildly elevated troponin - Patient refused a stress test and echocardiogram this admission. - Patient has a recent cardiac workup at [facility] History of Diastolic CHF -Patient refused echo and stress test HTN (hypertension) -Stable DM2 - BG stable Hyperkalemia, resolved Severe protein calorie malnutrition -Network Support Analyst consulted DVT prophylaxis SCD to BLE while in bed. Depression. Continue Cymbalta 30 mg PO daily Disposition: patient is awaiting placement. Patient is a level II. History Interval history: No new issues overnight. Patient denies chest pain or shortness of breath. Hospitalist Physical - Constitutional Vitals: Temp Pulse Resp BP Pulse Ox 98.8 F 101 H 20 122/81 97 09/07/18 07:15 09/07/18 08:43 09/07/18 07:15 09/07/18 07:15 09/07/18 08:43 General appearance: Present: no acute distress, cachectic - EENT Eyes: Present: PERRL, EOM intact ENT: hearing intact, clear oral mucosa, dentition normal - Neck Neck: Present: supple, normal ROM - Respiratory Respiratory effort: normal Respiratory: bilateral: CTA - Cardiovascular Rhythm: regular Heart Sounds: Present: S1 & S2. Absent: gallop, rub - Extremities Extremities: no ischemia, No edema, Full ROM - Abdominal General gastrointestinal: soft, non-tender, non-distended, normal bowel sounds - Integumentary Integumentary: Present: clear, warm, dry - Neurologic Neurologic: CNII-XII intact, moves all extremities Results - Labs CBC & Chem 7: 08/29/18 13:46 09/04/18 08:07 Labs: Laboratory Last Values WBC 7.3 K/mm3 (4.5-11.0) 08/29/18 13:46 RBC 3.97 M/mm3 (3.65-5.03) 08/29/18 13:46 Hgb 11.3 gm/dl (11.8-15.2) L 08/29/18 13:46 Hct 33.9 % (35.5-45.6) L 08/29/18 13:46 MCV 86 fl (84-94) 08/29/18 13:46 MCH 29 pg (28-32) 08/29/18 13:46 MCHC 33 % (32-34) 08/29/18 13:46 RDW 13.7 % (13.2-15.2) 08/29/18 13:46 Plt Count 211 K/mm3 (140-440) 08/29/18 13:46 Lymph % (Auto) 21.9 % (13.4-35.0) 08/29/18 13:46 [place] % (Auto) 6.1 % (0.0-7.3) 08/29/18 13:46 Eos % (Auto) 1.0 % (0.0-4.3) 08/29/18 13:46 Baso % (Auto) 0.8 % (0.0-1.8) 08/29/18 13:46 Lymph # 1.6 K/mm3 (1.2-5.4) 08/29/18 13:46 [place] # 0.4 K/mm3 (0.0-0.8) 08/29/18 13:46 Eos # 0.1 K/mm3 (0.0-0.4) 08/29/18 13:46 Baso # 0.1 K/mm3 (0.0-0.1) 08/29/18 13:46 Seg Neutrophils % 70.2 % (40.0-70.0) H 08/29/18 13:46 Seg Neutrophils # 5.1 K/mm3 (1.8-7.7) 08/29/18 13:46 D-Dimer 226.69 ng/mlDDU (0-234) 08/28/18 16:02 Sodium 143 mmol/L (137-145) 09/04/18 08:07 Potassium 4.2 mmol/L (3.6-5.0) 09/04/18 08:07 Chloride 100.6 mmol/L (98-107) 09/04/18 08:07 Carbon Dioxide 28 mmol/L (22-30) 09/04/18 08:07 Anion Gap 19 mmol/L 09/04/18 08:07 BUN 20 mg/dL (9-20) 09/04/18 08:07 Creatinine 1.1 mg/dL (0.8-1.5) 09/04/18 08:07 Estimated GFR > 60 ml/min 09/04/18 08:07 BUN/Creatinine Ratio 18 % 09/04/18 08:07 Glucose 92 mg/dL (75-100) 09/04/18 08:07 POC Glucose 156 (70-105) H 09/07/18 07:18 Calcium 8.9 mg/dL (8.4-10.2) 09/04/18 08:07 Total Bilirubin 0.50 mg/dL (0.1-1.2) 09/04/18 08:07 AST 18 units/L (5-40) 09/04/18 08:07 ALT 16 units/L (7-56) 09/04/18 08:07 Alkaline Phosphatase 98 units/L (35-129) 09/04/18 08:07 Troponin T 0.017 ng/mL (0.00-0.029) 08/29/18 13:46 NT-Pro-B Natriuret Pep 233.2 pg/mL (0-900) 08/28/18 16:02 Total Protein 6.5 g/dL (6.3-8.2) 09/04/18 08:07 Albumin 3.6 g/dL (3.9-5) L 09/04/18 08:07 Albumin/Globulin Ratio 1.2 % 09/04/18 08:07 Triglycerides 136 mg/dL (2-149) 08/28/18 13:18 Cholesterol 162 mg/dL (50-199) 08/28/18 13:18 LDL Cholesterol Direct 85 mg/dL (50-130) 08/28/18 13:18 HDL Cholesterol 58 mg/dL (40-59) 08/28/18 13:18 Cholesterol/HDL Ratio 2.79 % 08/28/18 13:18 Urine Color Dark yellow (Yellow) 08/29/18 13:00 Urine Turbidity Clear (Clear) 08/29/18 13:00 Urine pH 5.0 (5.0-7.0) 08/29/18 13:00 Ur Specific [place] 1.029 (1.003-1.030) 08/29/18 13:00 Urine Protein 30 mg/dl mg/dL (Negative) 08/29/18 13:00 Urine Glucose (UA) 50 mg/dL (Negative) 08/29/18 13:00 Urine Ketones Neg mg/dL (Negative) 08/29/18 13:00 Urine Blood Neg (Negative) 08/29/18 13:00 Urine Nitrite Neg (Negative) 08/29/18 13:00 Urine Bilirubin Neg (Negative) 08/29/18 13:00 Urine Urobilinogen 2.0 mg/dL (<2.0) 08/29/18 13:00 Ur Leukocyte Esterase Neg (Negative) 08/29/18 13:00 Urine WBC (Auto) < 1.0 /HPF (0.0-6.0) 08/29/18 13:00 Urine RBC (Auto) 1.0 /HPF (0.0-6.0) 08/29/18 13:00 Urine Mucus Few /HPF 08/29/18 13:00 Active Medications - Current Medications Current Medications: Generic Name Dose Route Start Last Admin Trade Name Freq PRN Reason Stop Dose Admin Acetaminophen 650 mg 08/28/18 15:51 09/05/18 09:15 Tylenol PO 650 mg Q4H PRN Administration Pain MILD(1-3)/Fever >100.5/OLIVA Albuterol 2.5 mg 08/28/18 15:51 Proventil IH Q4HRT PRN Shortness Of Breath Atorvastatin Calcium 20 mg 08/28/18 22:00 09/06/18 22:11 Lipitor PO Not Given QHS [facility] Cyproheptadine HCl 4 mg 08/28/18 22:00 09/07/18 11:28 Periactin PO Not Given BID [facility] Duloxetine HCl 30 mg 08/29/18 10:00 09/07/18 11:27 Cymbalta PO Not Given QAM [facility] Famotidine 20 mg 08/28/18 22:00 09/07/18 11:28 Pepcid PO Not Given BID [facility] Insulin Human Lispro 0 unit 08/29/18 11:30 09/07/18 09:14 Humalog SUB-Q Not Given ACHS [facility] Protocol Metoprolol Tartrate 25 mg 08/29/18 10:00 09/07/18 11:28 Lopressor PO Not Given DAILY [facility] Morphine Sulfate 2 mg 08/28/18 15:51 Morphine IV Q4H PRN Pain, Moderate (4-6) Multivitamins 1 each 08/29/18 10:00 09/07/18 11:29 Theragran Tab PO Not Given QDAY [facility] Nitroglycerin 0.4 mg 08/28/18 15:51 Nitrostat SL Q5M PRN Chest Pain Ondansetron HCl 4 mg 08/28/18 15:51 Zofran IV Q8H PRN Nausea And Vomiting Sodium Chloride 10 ml 08/28/18 22:00 09/07/18 11:28 Sodium Chloride Flush Syringe 10 Ml IV Not Given BID ANNAMARIA Sodium Chloride 10 ml 08/28/18 15:51 Sodium Chloride Flush Syringe 10 Ml IV PRN PRN LINE FLUSH Nutrition/Malnutrition Assess - Dietary Evaluation Nutrition/Malnutrition Findings: Nutrition Notes Start: 08/29/18 14:02 Freq: Status: Active Protocol: Document 09/03/18 17:08 RM (Rec: 09/03/18 17:09 [email or web address]) Nutrition Notes Need for Assessment generated from: MD Order Initial or Follow up Brief Note Subjective/Other Information Consulted for malnutrition. Pt already being followed. Nutrition Intervention Follow-Up By: 09/08/18 Additional Comments Follow up for stable intakes
[2018-09-08] MEDS: HumaLOG SUB-Q SCH ×4 (07:30→23:05)
[2018-09-08] MEDS: CYMBALTA PO SCH (10:00)
[2018-09-08] MEDS: SODIUM CHLORIDE FLUSH SYRINGE 10 ML IV SCH ×2 (10:00→21:27)
[2018-09-08] MEDS: THERAGRAN Tab PO SCH (10:00)
[2018-09-08] MEDS: PERIACTIN PO SCH ×2 (10:00→21:27)
[2018-09-08] MEDS: PEPCID PO SCH ×2 (10:00→21:27)
[2018-09-08] MEDS: LOPRESSOR PO SCH (10:00)
--- NOTE | 2018-09-08 11:26 | Progress Note ---
Assessment and Plan Assessment and plan: Chest pain with mildly elevated troponin - Patient refused a stress test and echocardiogram this admission. - Patient has a recent cardiac workup at [facility] History of Diastolic CHF -Patient refused echo and stress test HTN (hypertension) -Stable DM2 - BG stable Hyperkalemia, resolved Severe protein calorie malnutrition -Drop Shipment Clerk consulted DVT prophylaxis SCD to BLE while in bed. Depression. Continue Cymbalta 30 mg PO daily Disposition: patient is awaiting placement. Patient is a level II. History Interval history: No new issues overnight. Patient denies chest pain or shortness of breath. Hospitalist Physical - Constitutional Vitals: Temp Pulse Resp BP Pulse Ox 98.8 F 99 H 18 128/80 99 09/08/18 02:28 09/08/18 02:59 09/08/18 02:28 09/08/18 02:28 09/08/18 02:59 General appearance: Present: no acute distress, cachectic - EENT Eyes: Present: PERRL, EOM intact ENT: hearing intact, clear oral mucosa, dentition normal - Neck Neck: Present: supple, normal ROM - Respiratory Respiratory effort: normal Respiratory: bilateral: CTA - Cardiovascular Rhythm: regular Heart Sounds: Present: S1 & S2. Absent: gallop, rub - Extremities Extremities: no ischemia, No edema, Full ROM - Abdominal General gastrointestinal: soft, non-tender, non-distended, normal bowel sounds - Integumentary Integumentary: Present: clear, warm, dry - Neurologic Neurologic: CNII-XII intact, moves all extremities Results - Labs CBC & Chem 7: 08/29/18 13:46 09/04/18 08:07 Labs: Laboratory Last Values WBC 7.3 K/mm3 (4.5-11.0) 08/29/18 13:46 RBC 3.97 M/mm3 (3.65-5.03) 08/29/18 13:46 Hgb 11.3 gm/dl (11.8-15.2) L 08/29/18 13:46 Hct 33.9 % (35.5-45.6) L 08/29/18 13:46 MCV 86 fl (84-94) 08/29/18 13:46 MCH 29 pg (28-32) 08/29/18 13:46 MCHC 33 % (32-34) 08/29/18 13:46 RDW 13.7 % (13.2-15.2) 08/29/18 13:46 Plt Count 211 K/mm3 (140-440) 08/29/18 13:46 Lymph % (Auto) 21.9 % (13.4-35.0) 08/29/18 13:46 [place] % (Auto) 6.1 % (0.0-7.3) 08/29/18 13:46 Eos % (Auto) 1.0 % (0.0-4.3) 08/29/18 13:46 Baso % (Auto) 0.8 % (0.0-1.8) 08/29/18 13:46 Lymph # 1.6 K/mm3 (1.2-5.4) 08/29/18 13:46 [place] # 0.4 K/mm3 (0.0-0.8) 08/29/18 13:46 Eos # 0.1 K/mm3 (0.0-0.4) 08/29/18 13:46 Baso # 0.1 K/mm3 (0.0-0.1) 08/29/18 13:46 Seg Neutrophils % 70.2 % (40.0-70.0) H 08/29/18 13:46 Seg Neutrophils # 5.1 K/mm3 (1.8-7.7) 08/29/18 13:46 D-Dimer 226.69 ng/mlDDU (0-234) 08/28/18 16:02 Sodium 143 mmol/L (137-145) 09/04/18 08:07 Potassium 4.2 mmol/L (3.6-5.0) 09/04/18 08:07 Chloride 100.6 mmol/L (98-107) 09/04/18 08:07 Carbon Dioxide 28 mmol/L (22-30) 09/04/18 08:07 Anion Gap 19 mmol/L 09/04/18 08:07 BUN 20 mg/dL (9-20) 09/04/18 08:07 Creatinine 1.1 mg/dL (0.8-1.5) 09/04/18 08:07 Estimated GFR > 60 ml/min 09/04/18 08:07 BUN/Creatinine Ratio 18 % 09/04/18 08:07 Glucose 92 mg/dL (75-100) 09/04/18 08:07 POC Glucose 232 (70-105) H 09/07/18 22:06 Calcium 8.9 mg/dL (8.4-10.2) 09/04/18 08:07 Total Bilirubin 0.50 mg/dL (0.1-1.2) 09/04/18 08:07 AST 18 units/L (5-40) 09/04/18 08:07 ALT 16 units/L (7-56) 09/04/18 08:07 Alkaline Phosphatase 98 units/L (35-129) 09/04/18 08:07 Troponin T 0.017 ng/mL (0.00-0.029) 08/29/18 13:46 NT-Pro-B Natriuret Pep 233.2 pg/mL (0-900) 08/28/18 16:02 Total Protein 6.5 g/dL (6.3-8.2) 09/04/18 08:07 Albumin 3.6 g/dL (3.9-5) L 09/04/18 08:07 Albumin/Globulin Ratio 1.2 % 09/04/18 08:07 Triglycerides 136 mg/dL (2-149) 08/28/18 13:18 Cholesterol 162 mg/dL (50-199) 08/28/18 13:18 LDL Cholesterol Direct 85 mg/dL (50-130) 08/28/18 13:18 HDL Cholesterol 58 mg/dL (40-59) 08/28/18 13:18 Cholesterol/HDL Ratio 2.79 % 08/28/18 13:18 Urine Color Dark yellow (Yellow) 08/29/18 13:00 Urine Turbidity Clear (Clear) 08/29/18 13:00 Urine pH 5.0 (5.0-7.0) 08/29/18 13:00 Ur Specific [place] 1.029 (1.003-1.030) 08/29/18 13:00 Urine Protein 30 mg/dl mg/dL (Negative) 08/29/18 13:00 Urine Glucose (UA) 50 mg/dL (Negative) 08/29/18 13:00 Urine Ketones Neg mg/dL (Negative) 08/29/18 13:00 Urine Blood Neg (Negative) 08/29/18 13:00 Urine Nitrite Neg (Negative) 08/29/18 13:00 Urine Bilirubin Neg (Negative) 08/29/18 13:00 Urine Urobilinogen 2.0 mg/dL (<2.0) 08/29/18 13:00 Ur Leukocyte Esterase Neg (Negative) 08/29/18 13:00 Urine WBC (Auto) < 1.0 /HPF (0.0-6.0) 08/29/18 13:00 Urine RBC (Auto) 1.0 /HPF (0.0-6.0) 08/29/18 13:00 Urine Mucus Few /HPF 08/29/18 13:00 Active Medications - Current Medications Current Medications: Generic Name Dose Route Start Last Admin Trade Name Freq PRN Reason Stop Dose Admin Acetaminophen 650 mg 08/28/18 15:51 09/05/18 09:15 Tylenol PO 650 mg Q4H PRN Administration Pain MILD(1-3)/Fever >100.5/OLIVA Albuterol 2.5 mg 08/28/18 15:51 Proventil IH Q4HRT PRN Shortness Of Breath Atorvastatin Calcium 20 mg 08/28/18 22:00 09/07/18 21:07 Lipitor PO Not Given QHS [facility] Cyproheptadine HCl 4 mg 08/28/18 22:00 09/07/18 21:08 Periactin PO Not Given BID [facility] Duloxetine HCl 30 mg 08/29/18 10:00 09/07/18 11:27 Cymbalta PO Not Given QAM [facility] Famotidine 20 mg 08/28/18 22:00 09/07/18 21:08 Pepcid PO Not Given BID [facility] Insulin Human Lispro 0 unit 08/29/18 11:30 09/07/18 21:07 Humalog SUB-Q Not Given ACHS [facility] Protocol Metoprolol Tartrate 25 mg 08/29/18 10:00 09/07/18 11:28 Lopressor PO Not Given DAILY [facility] Morphine Sulfate 2 mg 08/28/18 15:51 Morphine IV Q4H PRN Pain, Moderate (4-6) Multivitamins 1 each 08/29/18 10:00 09/07/18 11:29 Theragran Tab PO Not Given QDAY [facility] Nitroglycerin 0.4 mg 08/28/18 15:51 Nitrostat SL Q5M PRN Chest Pain Ondansetron HCl 4 mg 08/28/18 15:51 Zofran IV Q8H PRN Nausea And Vomiting Sodium Chloride 10 ml 08/28/18 22:00 09/07/18 21:09 Sodium Chloride Flush Syringe 10 Ml IV Not Given BID ANNAMARIA Sodium Chloride 10 ml 08/28/18 15:51 Sodium Chloride Flush Syringe 10 Ml IV PRN PRN LINE FLUSH Nutrition/Malnutrition Assess - Dietary Evaluation Nutrition/Malnutrition Findings: Nutrition Notes Start: 08/29/18 14:02 Freq: Status: Active Protocol: Document 09/03/18 17:08 RM (Rec: 09/03/18 17:09 [email or web address]) Nutrition Notes Need for Assessment generated from: MD Order Initial or Follow up Brief Note Subjective/Other Information Consulted for malnutrition. Pt already being followed. Nutrition Intervention Follow-Up By: 09/08/18 Additional Comments Follow up for stable intakes
[2018-09-09] MEDS: HumaLOG SUB-Q SCH ×4 (09:13→22:50)
[2018-09-09] MEDS: PERIACTIN PO SCH ×2 (09:14→22:26)
[2018-09-09] MEDS: PEPCID PO SCH ×2 (09:14→22:26)
[2018-09-09] MEDS: LOPRESSOR PO SCH (09:14)
[2018-09-09] MEDS: THERAGRAN Tab PO SCH (09:14)
[2018-09-09] MEDS: CYMBALTA PO SCH (09:14)
[2018-09-09] MEDS: SODIUM CHLORIDE FLUSH SYRINGE 10 ML IV SCH ×2 (09:14→22:26)
--- NOTE | 2018-09-09 10:54 | Progress Note ---
Assessment and Plan Assessment and plan: Chest pain with mildly elevated troponin - Patient refused a stress test and echocardiogram this admission. - Patient has a recent cardiac workup at [facility] History of Diastolic CHF -Patient refused echo and stress test HTN (hypertension) -Stable DM2 - BG stable Hyperkalemia, resolved Severe protein calorie malnutrition -Psychotherapist Counselor consulted DVT prophylaxis SCD to BLE while in bed. Depression. Continue Cymbalta 30 mg PO daily Disposition: patient is awaiting placement. Patient is a level II. History Interval history: No new issues overnight. Patient denies chest pain or shortness of breath. Hospitalist Physical - Constitutional Vitals: Temp Pulse Resp BP Pulse Ox 97.3 F L 111 H 18 85/55 97 09/09/18 03:36 09/09/18 03:36 09/09/18 03:36 09/09/18 03:36 09/09/18 03:36 General appearance: Present: no acute distress, cachectic - EENT Eyes: Present: PERRL, EOM intact ENT: hearing intact, clear oral mucosa, dentition normal - Neck Neck: Present: supple, normal ROM - Respiratory Respiratory effort: normal Respiratory: bilateral: CTA - Cardiovascular Rhythm: regular Heart Sounds: Present: S1 & S2. Absent: gallop, rub - Extremities Extremities: no ischemia, No edema, Full ROM - Abdominal General gastrointestinal: soft, non-tender, non-distended, normal bowel sounds - Integumentary Integumentary: Present: clear, warm, dry - Neurologic Neurologic: CNII-XII intact, moves all extremities Results - Labs CBC & Chem 7: 08/29/18 13:46 09/04/18 08:07 Labs: Laboratory Last Values WBC 7.3 K/mm3 (4.5-11.0) 08/29/18 13:46 RBC 3.97 M/mm3 (3.65-5.03) 08/29/18 13:46 Hgb 11.3 gm/dl (11.8-15.2) L 08/29/18 13:46 Hct 33.9 % (35.5-45.6) L 08/29/18 13:46 MCV 86 fl (84-94) 08/29/18 13:46 MCH 29 pg (28-32) 08/29/18 13:46 MCHC 33 % (32-34) 08/29/18 13:46 RDW 13.7 % (13.2-15.2) 08/29/18 13:46 Plt Count 211 K/mm3 (140-440) 08/29/18 13:46 Lymph % (Auto) 21.9 % (13.4-35.0) 08/29/18 13:46 [place] % (Auto) 6.1 % (0.0-7.3) 08/29/18 13:46 Eos % (Auto) 1.0 % (0.0-4.3) 08/29/18 13:46 Baso % (Auto) 0.8 % (0.0-1.8) 08/29/18 13:46 Lymph # 1.6 K/mm3 (1.2-5.4) 08/29/18 13:46 [place] # 0.4 K/mm3 (0.0-0.8) 08/29/18 13:46 Eos # 0.1 K/mm3 (0.0-0.4) 08/29/18 13:46 Baso # 0.1 K/mm3 (0.0-0.1) 08/29/18 13:46 Seg Neutrophils % 70.2 % (40.0-70.0) H 08/29/18 13:46 Seg Neutrophils # 5.1 K/mm3 (1.8-7.7) 08/29/18 13:46 D-Dimer 226.69 ng/mlDDU (0-234) 08/28/18 16:02 Sodium 143 mmol/L (137-145) 09/04/18 08:07 Potassium 4.2 mmol/L (3.6-5.0) 09/04/18 08:07 Chloride 100.6 mmol/L (98-107) 09/04/18 08:07 Carbon Dioxide 28 mmol/L (22-30) 09/04/18 08:07 Anion Gap 19 mmol/L 09/04/18 08:07 BUN 20 mg/dL (9-20) 09/04/18 08:07 Creatinine 1.1 mg/dL (0.8-1.5) 09/04/18 08:07 Estimated GFR > 60 ml/min 09/04/18 08:07 BUN/Creatinine Ratio 18 % 09/04/18 08:07 Glucose 92 mg/dL (75-100) 09/04/18 08:07 POC Glucose 249 (70-105) H 09/08/18 22:27 Calcium 8.9 mg/dL (8.4-10.2) 09/04/18 08:07 Total Bilirubin 0.50 mg/dL (0.1-1.2) 09/04/18 08:07 AST 18 units/L (5-40) 09/04/18 08:07 ALT 16 units/L (7-56) 09/04/18 08:07 Alkaline Phosphatase 98 units/L (35-129) 09/04/18 08:07 Troponin T 0.017 ng/mL (0.00-0.029) 08/29/18 13:46 NT-Pro-B Natriuret Pep 233.2 pg/mL (0-900) 08/28/18 16:02 Total Protein 6.5 g/dL (6.3-8.2) 09/04/18 08:07 Albumin 3.6 g/dL (3.9-5) L 09/04/18 08:07 Albumin/Globulin Ratio 1.2 % 09/04/18 08:07 Triglycerides 136 mg/dL (2-149) 08/28/18 13:18 Cholesterol 162 mg/dL (50-199) 08/28/18 13:18 LDL Cholesterol Direct 85 mg/dL (50-130) 08/28/18 13:18 HDL Cholesterol 58 mg/dL (40-59) 08/28/18 13:18 Cholesterol/HDL Ratio 2.79 % 08/28/18 13:18 Urine Color Dark yellow (Yellow) 08/29/18 13:00 Urine Turbidity Clear (Clear) 08/29/18 13:00 Urine pH 5.0 (5.0-7.0) 08/29/18 13:00 Ur Specific [place] 1.029 (1.003-1.030) 08/29/18 13:00 Urine Protein 30 mg/dl mg/dL (Negative) 08/29/18 13:00 Urine Glucose (UA) 50 mg/dL (Negative) 08/29/18 13:00 Urine Ketones Neg mg/dL (Negative) 08/29/18 13:00 Urine Blood Neg (Negative) 08/29/18 13:00 Urine Nitrite Neg (Negative) 08/29/18 13:00 Urine Bilirubin Neg (Negative) 08/29/18 13:00 Urine Urobilinogen 2.0 mg/dL (<2.0) 08/29/18 13:00 Ur Leukocyte Esterase Neg (Negative) 08/29/18 13:00 Urine WBC (Auto) < 1.0 /HPF (0.0-6.0) 08/29/18 13:00 Urine RBC (Auto) 1.0 /HPF (0.0-6.0) 08/29/18 13:00 Urine Mucus Few /HPF 08/29/18 13:00 Active Medications - Current Medications Current Medications: Generic Name Dose Route Start Last Admin Trade Name Freq PRN Reason Stop Dose Admin Acetaminophen 650 mg 08/28/18 15:51 09/05/18 09:15 Tylenol PO 650 mg Q4H PRN Administration Pain MILD(1-3)/Fever >100.5/OLIVA Albuterol 2.5 mg 08/28/18 15:51 Proventil IH Q4HRT PRN Shortness Of Breath Atorvastatin Calcium 20 mg 08/28/18 22:00 09/08/18 21:27 Lipitor PO Not Given QHS [facility] Cyproheptadine HCl 4 mg 08/28/18 22:00 09/09/18 09:14 Periactin PO Not Given BID [facility] Duloxetine HCl 30 mg 08/29/18 10:00 09/09/18 09:14 Cymbalta PO Not Given QAM [facility] Famotidine 20 mg 08/28/18 22:00 09/09/18 09:14 Pepcid PO Not Given BID [facility] Insulin Human Lispro 0 unit 08/29/18 11:30 09/09/18 09:13 Humalog SUB-Q Not Given ACHS [facility] Protocol Metoprolol Tartrate 25 mg 08/29/18 10:00 09/09/18 09:14 Lopressor PO Not Given DAILY [facility] Morphine Sulfate 2 mg 08/28/18 15:51 Morphine IV Q4H PRN Pain, Moderate (4-6) Multivitamins 1 each 08/29/18 10:00 09/09/18 09:14 Theragran Tab PO Not Given QDAY [facility] Nitroglycerin 0.4 mg 08/28/18 15:51 Nitrostat SL Q5M PRN Chest Pain Ondansetron HCl 4 mg 08/28/18 15:51 Zofran IV Q8H PRN Nausea And Vomiting Sodium Chloride 10 ml 08/28/18 22:00 09/09/18 09:14 Sodium Chloride Flush Syringe 10 Ml IV Not Given BID ANNAMARIA Sodium Chloride 10 ml 08/28/18 15:51 Sodium Chloride Flush Syringe 10 Ml IV PRN PRN LINE FLUSH Nutrition/Malnutrition Assess - Dietary Evaluation Nutrition/Malnutrition Findings: Nutrition Notes Start: 08/29/18 14:02 Freq: Status: Active Protocol: Document 09/08/18 12:02 RD (Rec: 09/08/18 12:04 RD [email or web address]) Co-Sign 09/08/18 12:02 LP Nutrition Notes Initial or Follow up Brief Note Current Diagnosis Diabetes,Hypertension,Heart Failure Other Pertinent Diagnosis Depression, acute renal failure, schizophrenia Current Diet Cardiac/Consistent CHO w/ Glucerna daily Subjective/Other Information Pt asked to be left alone at time of visit. Refused care. Nutrition Intervention Follow-Up By: 09/11/18 Additional Comments f/u: intakes
[2018-09-10] MEDS: HumaLOG SUB-Q SCH ×4 (08:02→23:10)
--- NOTE | 2018-09-10 09:24 | Progress Note ---
Assessment and Plan Assessment and plan: Chest pain with mildly elevated troponin - Patient refused a stress test and echocardiogram this admission. - Patient has a recent cardiac workup at [facility] History of Diastolic CHF -Patient refused echo and stress test HTN (hypertension) -Stable DM2 - BG stable Hyperkalemia, resolved Severe protein calorie malnutrition -Main Entree Cook And Cashier consulted DVT prophylaxis SCD to BLE while in bed. Depression. Continue Cymbalta 30 mg PO daily Disposition: patient is awaiting placement. Patient is a level II. History Interval history: No new issues overnight. Patient denies chest pain or shortness of breath. Hospitalist Physical - Constitutional Vitals: Temp Pulse Resp BP Pulse Ox 98.3 F 96 H 20 120/78 100 09/10/18 02:19 09/10/18 02:24 09/10/18 02:19 09/10/18 02:19 09/10/18 02:24 General appearance: Present: no acute distress, cachectic - EENT Eyes: Present: PERRL, EOM intact ENT: hearing intact, clear oral mucosa, dentition normal - Neck Neck: Present: supple, normal ROM - Respiratory Respiratory effort: normal Respiratory: bilateral: CTA - Cardiovascular Rhythm: regular Heart Sounds: Present: S1 & S2. Absent: gallop, rub - Extremities Extremities: no ischemia, No edema, Full ROM - Abdominal General gastrointestinal: soft, non-tender, non-distended, normal bowel sounds - Integumentary Integumentary: Present: clear, warm, dry - Neurologic Neurologic: CNII-XII intact, moves all extremities Results - Labs CBC & Chem 7: 08/29/18 13:46 09/04/18 08:07 Labs: Laboratory Last Values WBC 7.3 K/mm3 (4.5-11.0) 08/29/18 13:46 RBC 3.97 M/mm3 (3.65-5.03) 08/29/18 13:46 Hgb 11.3 gm/dl (11.8-15.2) L 08/29/18 13:46 Hct 33.9 % (35.5-45.6) L 08/29/18 13:46 MCV 86 fl (84-94) 08/29/18 13:46 MCH 29 pg (28-32) 08/29/18 13:46 MCHC 33 % (32-34) 08/29/18 13:46 RDW 13.7 % (13.2-15.2) 08/29/18 13:46 Plt Count 211 K/mm3 (140-440) 08/29/18 13:46 Lymph % (Auto) 21.9 % (13.4-35.0) 08/29/18 13:46 [place] % (Auto) 6.1 % (0.0-7.3) 08/29/18 13:46 Eos % (Auto) 1.0 % (0.0-4.3) 08/29/18 13:46 Baso % (Auto) 0.8 % (0.0-1.8) 08/29/18 13:46 Lymph # 1.6 K/mm3 (1.2-5.4) 08/29/18 13:46 [place] # 0.4 K/mm3 (0.0-0.8) 08/29/18 13:46 Eos # 0.1 K/mm3 (0.0-0.4) 08/29/18 13:46 Baso # 0.1 K/mm3 (0.0-0.1) 08/29/18 13:46 Seg Neutrophils % 70.2 % (40.0-70.0) H 08/29/18 13:46 Seg Neutrophils # 5.1 K/mm3 (1.8-7.7) 08/29/18 13:46 D-Dimer 226.69 ng/mlDDU (0-234) 08/28/18 16:02 Sodium 143 mmol/L (137-145) 09/04/18 08:07 Potassium 4.2 mmol/L (3.6-5.0) 09/04/18 08:07 Chloride 100.6 mmol/L (98-107) 09/04/18 08:07 Carbon Dioxide 28 mmol/L (22-30) 09/04/18 08:07 Anion Gap 19 mmol/L 09/04/18 08:07 BUN 20 mg/dL (9-20) 09/04/18 08:07 Creatinine 1.1 mg/dL (0.8-1.5) 09/04/18 08:07 Estimated GFR > 60 ml/min 09/04/18 08:07 BUN/Creatinine Ratio 18 % 09/04/18 08:07 Glucose 92 mg/dL (75-100) 09/04/18 08:07 POC Glucose 196 (70-105) H 09/10/18 07:56 Calcium 8.9 mg/dL (8.4-10.2) 09/04/18 08:07 Total Bilirubin 0.50 mg/dL (0.1-1.2) 09/04/18 08:07 AST 18 units/L (5-40) 09/04/18 08:07 ALT 16 units/L (7-56) 09/04/18 08:07 Alkaline Phosphatase 98 units/L (35-129) 09/04/18 08:07 Troponin T 0.017 ng/mL (0.00-0.029) 08/29/18 13:46 NT-Pro-B Natriuret Pep 233.2 pg/mL (0-900) 08/28/18 16:02 Total Protein 6.5 g/dL (6.3-8.2) 09/04/18 08:07 Albumin 3.6 g/dL (3.9-5) L 09/04/18 08:07 Albumin/Globulin Ratio 1.2 % 09/04/18 08:07 Triglycerides 136 mg/dL (2-149) 08/28/18 13:18 Cholesterol 162 mg/dL (50-199) 08/28/18 13:18 LDL Cholesterol Direct 85 mg/dL (50-130) 08/28/18 13:18 HDL Cholesterol 58 mg/dL (40-59) 08/28/18 13:18 Cholesterol/HDL Ratio 2.79 % 08/28/18 13:18 Urine Color Dark yellow (Yellow) 08/29/18 13:00 Urine Turbidity Clear (Clear) 08/29/18 13:00 Urine pH 5.0 (5.0-7.0) 08/29/18 13:00 Ur Specific [place] 1.029 (1.003-1.030) 08/29/18 13:00 Urine Protein 30 mg/dl mg/dL (Negative) 08/29/18 13:00 Urine Glucose (UA) 50 mg/dL (Negative) 08/29/18 13:00 Urine Ketones Neg mg/dL (Negative) 08/29/18 13:00 Urine Blood Neg (Negative) 08/29/18 13:00 Urine Nitrite Neg (Negative) 08/29/18 13:00 Urine Bilirubin Neg (Negative) 08/29/18 13:00 Urine Urobilinogen 2.0 mg/dL (<2.0) 08/29/18 13:00 Ur Leukocyte Esterase Neg (Negative) 08/29/18 13:00 Urine WBC (Auto) < 1.0 /HPF (0.0-6.0) 08/29/18 13:00 Urine RBC (Auto) 1.0 /HPF (0.0-6.0) 08/29/18 13:00 Urine Mucus Few /HPF 08/29/18 13:00 Active Medications - Current Medications Current Medications: Generic Name Dose Route Start Last Admin Trade Name Freq PRN Reason Stop Dose Admin Acetaminophen 650 mg 08/28/18 15:51 09/05/18 09:15 Tylenol PO 650 mg Q4H PRN Administration Pain MILD(1-3)/Fever >100.5/OLIVA Albuterol 2.5 mg 08/28/18 15:51 Proventil IH Q4HRT PRN Shortness Of Breath Atorvastatin Calcium 20 mg 08/28/18 22:00 09/09/18 22:26 Lipitor PO Not Given QHS [facility] Cyproheptadine HCl 4 mg 08/28/18 22:00 09/09/18 22:26 Periactin PO Not Given BID [facility] Duloxetine HCl 30 mg 08/29/18 10:00 09/09/18 09:14 Cymbalta PO Not Given QAM [facility] Famotidine 20 mg 08/28/18 22:00 09/09/18 22:26 Pepcid PO Not Given BID [facility] Insulin Human Lispro 0 unit 08/29/18 11:30 09/10/18 08:02 Humalog SUB-Q Not Given ACHS [facility] Protocol Metoprolol Tartrate 25 mg 08/29/18 10:00 09/09/18 09:14 Lopressor PO Not Given DAILY [facility] Morphine Sulfate 2 mg 08/28/18 15:51 Morphine IV Q4H PRN Pain, Moderate (4-6) Multivitamins 1 each 08/29/18 10:00 09/09/18 09:14 Theragran Tab PO Not Given QDAY [facility] Nitroglycerin 0.4 mg 08/28/18 15:51 Nitrostat SL Q5M PRN Chest Pain Ondansetron HCl 4 mg 08/28/18 15:51 Zofran IV Q8H PRN Nausea And Vomiting Sodium Chloride 10 ml 08/28/18 22:00 09/09/18 22:26 Sodium Chloride Flush Syringe 10 Ml IV Not Given BID ANNAMARIA Sodium Chloride 10 ml 08/28/18 15:51 Sodium Chloride Flush Syringe 10 Ml IV PRN PRN LINE FLUSH Nutrition/Malnutrition Assess - Dietary Evaluation Nutrition/Malnutrition Findings: Nutrition Notes Start: 08/29/18 14:02 Freq: Status: Active Protocol: Document 09/08/18 12:02 RD (Rec: 09/08/18 12:04 RD [email or web address]) Co-Sign 09/08/18 12:02 LP Nutrition Notes Initial or Follow up Brief Note Current Diagnosis Diabetes,Hypertension,Heart Failure Other Pertinent Diagnosis Depression, acute renal failure, schizophrenia Current Diet Cardiac/Consistent CHO w/ Glucerna daily Subjective/Other Information Pt asked to be left alone at time of visit. Refused care. Nutrition Intervention Follow-Up By: 09/11/18 Additional Comments f/u: intakes
[2018-09-10] MEDS: PERIACTIN PO SCH ×2 (09:33→23:10)
[2018-09-10] MEDS: LOPRESSOR PO SCH (09:33)
[2018-09-10] MEDS: THERAGRAN Tab PO SCH (09:33)
[2018-09-10] MEDS: SODIUM CHLORIDE FLUSH SYRINGE 10 ML IV SCH ×2 (09:33→23:11)
[2018-09-10] MEDS: PEPCID PO SCH ×2 (09:33→23:10)
[2018-09-10] MEDS: CYMBALTA PO SCH (09:33)
[2018-09-11] MEDS: HumaLOG SUB-Q SCH ×4 (08:33→22:35)
--- NOTE | 2018-09-11 10:26 | Progress Note ---
Assessment and Plan Assessment and plan: Chest pain with mildly elevated troponin - Patient refused a stress test and echocardiogram this admission. - Patient has a recent cardiac workup at [facility] History of Diastolic CHF -Patient refused echo and stress test HTN (hypertension) -Stable DM2 - BG stable Hyperkalemia, resolved Severe protein calorie malnutrition -Field Adjuster consulted DVT prophylaxis SCD to BLE while in bed. Depression. Continue Cymbalta 30 mg PO daily Disposition: patient is awaiting placement. Patient is a level II. History Interval history: No new issues overnight. Patient denies chest pain or shortness of breath. Hospitalist Physical - Constitutional Vitals: Temp Pulse Resp BP Pulse Ox 98.0 F 113 H 18 103/69 96 09/11/18 07:55 09/11/18 07:55 09/11/18 07:55 09/11/18 07:55 09/11/18 07:55 General appearance: Present: no acute distress, cachectic - EENT Eyes: Present: PERRL, EOM intact ENT: hearing intact, clear oral mucosa, dentition normal - Neck Neck: Present: supple, normal ROM - Respiratory Respiratory effort: normal Respiratory: bilateral: CTA - Cardiovascular Rhythm: regular Heart Sounds: Present: S1 & S2. Absent: gallop, rub - Extremities Extremities: no ischemia, No edema, Full ROM - Abdominal General gastrointestinal: soft, non-tender, non-distended, normal bowel sounds - Integumentary Integumentary: Present: clear, warm, dry - Neurologic Neurologic: CNII-XII intact, moves all extremities Results - Labs CBC & Chem 7: 08/29/18 13:46 09/04/18 08:07 Labs: Laboratory Last Values WBC 7.3 K/mm3 (4.5-11.0) 08/29/18 13:46 RBC 3.97 M/mm3 (3.65-5.03) 08/29/18 13:46 Hgb 11.3 gm/dl (11.8-15.2) L 08/29/18 13:46 Hct 33.9 % (35.5-45.6) L 08/29/18 13:46 MCV 86 fl (84-94) 08/29/18 13:46 MCH 29 pg (28-32) 08/29/18 13:46 MCHC 33 % (32-34) 08/29/18 13:46 RDW 13.7 % (13.2-15.2) 08/29/18 13:46 Plt Count 211 K/mm3 (140-440) 08/29/18 13:46 Lymph % (Auto) 21.9 % (13.4-35.0) 08/29/18 13:46 [place] % (Auto) 6.1 % (0.0-7.3) 08/29/18 13:46 Eos % (Auto) 1.0 % (0.0-4.3) 08/29/18 13:46 Baso % (Auto) 0.8 % (0.0-1.8) 08/29/18 13:46 Lymph # 1.6 K/mm3 (1.2-5.4) 08/29/18 13:46 [place] # 0.4 K/mm3 (0.0-0.8) 08/29/18 13:46 Eos # 0.1 K/mm3 (0.0-0.4) 08/29/18 13:46 Baso # 0.1 K/mm3 (0.0-0.1) 08/29/18 13:46 Seg Neutrophils % 70.2 % (40.0-70.0) H 08/29/18 13:46 Seg Neutrophils # 5.1 K/mm3 (1.8-7.7) 08/29/18 13:46 D-Dimer 226.69 ng/mlDDU (0-234) 08/28/18 16:02 Sodium 143 mmol/L (137-145) 09/04/18 08:07 Potassium 4.2 mmol/L (3.6-5.0) 09/04/18 08:07 Chloride 100.6 mmol/L (98-107) 09/04/18 08:07 Carbon Dioxide 28 mmol/L (22-30) 09/04/18 08:07 Anion Gap 19 mmol/L 09/04/18 08:07 BUN 20 mg/dL (9-20) 09/04/18 08:07 Creatinine 1.1 mg/dL (0.8-1.5) 09/04/18 08:07 Estimated GFR > 60 ml/min 09/04/18 08:07 BUN/Creatinine Ratio 18 % 09/04/18 08:07 Glucose 92 mg/dL (75-100) 09/04/18 08:07 POC Glucose 196 (70-105) H 09/10/18 21:33 Calcium 8.9 mg/dL (8.4-10.2) 09/04/18 08:07 Total Bilirubin 0.50 mg/dL (0.1-1.2) 09/04/18 08:07 AST 18 units/L (5-40) 09/04/18 08:07 ALT 16 units/L (7-56) 09/04/18 08:07 Alkaline Phosphatase 98 units/L (35-129) 09/04/18 08:07 Troponin T 0.017 ng/mL (0.00-0.029) 08/29/18 13:46 NT-Pro-B Natriuret Pep 233.2 pg/mL (0-900) 08/28/18 16:02 Total Protein 6.5 g/dL (6.3-8.2) 09/04/18 08:07 Albumin 3.6 g/dL (3.9-5) L 09/04/18 08:07 Albumin/Globulin Ratio 1.2 % 09/04/18 08:07 Triglycerides 136 mg/dL (2-149) 08/28/18 13:18 Cholesterol 162 mg/dL (50-199) 08/28/18 13:18 LDL Cholesterol Direct 85 mg/dL (50-130) 08/28/18 13:18 HDL Cholesterol 58 mg/dL (40-59) 08/28/18 13:18 Cholesterol/HDL Ratio 2.79 % 08/28/18 13:18 Urine Color Dark yellow (Yellow) 08/29/18 13:00 Urine Turbidity Clear (Clear) 08/29/18 13:00 Urine pH 5.0 (5.0-7.0) 08/29/18 13:00 Ur Specific [place] 1.029 (1.003-1.030) 08/29/18 13:00 Urine Protein 30 mg/dl mg/dL (Negative) 08/29/18 13:00 Urine Glucose (UA) 50 mg/dL (Negative) 08/29/18 13:00 Urine Ketones Neg mg/dL (Negative) 08/29/18 13:00 Urine Blood Neg (Negative) 08/29/18 13:00 Urine Nitrite Neg (Negative) 08/29/18 13:00 Urine Bilirubin Neg (Negative) 08/29/18 13:00 Urine Urobilinogen 2.0 mg/dL (<2.0) 08/29/18 13:00 Ur Leukocyte Esterase Neg (Negative) 08/29/18 13:00 Urine WBC (Auto) < 1.0 /HPF (0.0-6.0) 08/29/18 13:00 Urine RBC (Auto) 1.0 /HPF (0.0-6.0) 08/29/18 13:00 Urine Mucus Few /HPF 08/29/18 13:00 Active Medications - Current Medications Current Medications: Generic Name Dose Route Start Last Admin Trade Name Freq PRN Reason Stop Dose Admin Acetaminophen 650 mg 08/28/18 15:51 09/05/18 09:15 Tylenol PO 650 mg Q4H PRN Administration Pain MILD(1-3)/Fever >100.5/OLIVA Albuterol 2.5 mg 08/28/18 15:51 Proventil IH Q4HRT PRN Shortness Of Breath Atorvastatin Calcium 20 mg 08/28/18 22:00 09/10/18 23:10 Lipitor PO Not Given QHS [facility] Cyproheptadine HCl 4 mg 08/28/18 22:00 09/10/18 23:10 Periactin PO Not Given BID [facility] Duloxetine HCl 30 mg 08/29/18 10:00 09/10/18 09:33 Cymbalta PO Not Given QAM [facility] Famotidine 20 mg 08/28/18 22:00 09/10/18 23:10 Pepcid PO Not Given BID [facility] Insulin Human Lispro 0 unit 08/29/18 11:30 09/10/18 23:10 Humalog SUB-Q Not Given ACHS [facility] Protocol Metoprolol Tartrate 25 mg 08/29/18 10:00 09/10/18 09:33 Lopressor PO Not Given DAILY [facility] Morphine Sulfate 2 mg 08/28/18 15:51 Morphine IV Q4H PRN Pain, Moderate (4-6) Multivitamins 1 each 08/29/18 10:00 09/10/18 09:33 Theragran Tab PO Not Given QDAY [facility] Nitroglycerin 0.4 mg 08/28/18 15:51 Nitrostat SL Q5M PRN Chest Pain Ondansetron HCl 4 mg 08/28/18 15:51 Zofran IV Q8H PRN Nausea And Vomiting Sodium Chloride 10 ml 08/28/18 22:00 09/10/18 23:11 Sodium Chloride Flush Syringe 10 Ml IV Not Given BID ANNAMARIA Sodium Chloride 10 ml 08/28/18 15:51 Sodium Chloride Flush Syringe 10 Ml IV PRN PRN LINE FLUSH Nutrition/Malnutrition Assess - Dietary Evaluation Nutrition/Malnutrition Findings: Nutrition Notes Start: 08/29/18 14:02 Freq: Status: Active Protocol: Document 09/08/18 12:02 RD (Rec: 09/08/18 12:04 RD [email or web address]) Co-Sign 09/08/18 12:02 LP Nutrition Notes Initial or Follow up Brief Note Current Diagnosis Diabetes,Hypertension,Heart Failure Other Pertinent Diagnosis Depression, acute renal failure, schizophrenia Current Diet Cardiac/Consistent CHO w/ Glucerna daily Subjective/Other Information Pt asked to be left alone at time of visit. Refused care. Nutrition Intervention Follow-Up By: 09/11/18 Additional Comments f/u: intakes
[2018-09-11] MEDS: PERIACTIN PO SCH ×2 (11:17→22:36)
[2018-09-11] MEDS: LOPRESSOR PO SCH (11:17)
[2018-09-11] MEDS: CYMBALTA PO SCH (11:17)
[2018-09-11] MEDS: PEPCID PO SCH ×2 (11:17→22:36)
[2018-09-11] MEDS: SODIUM CHLORIDE FLUSH SYRINGE 10 ML IV SCH ×2 (11:19→22:37)
[2018-09-11] MEDS: THERAGRAN Tab PO SCH (11:19)
[2018-09-12] MEDS: LOPRESSOR PO SCH (12:00)
[2018-09-12] MEDS: HumaLOG SUB-Q SCH ×3 (12:00→22:55)
[2018-09-12] MEDS: CYMBALTA PO SCH (12:00)
[2018-09-12] MEDS: SODIUM CHLORIDE FLUSH SYRINGE 10 ML IV SCH ×2 (12:01→22:55)
[2018-09-12] MEDS: PERIACTIN PO SCH ×2 (12:01→22:43)
[2018-09-12] MEDS: THERAGRAN Tab PO SCH (12:01)
[2018-09-12] MEDS: PEPCID PO SCH ×2 (12:02→22:42)
--- NOTE | 2018-09-12 13:24 | Progress Note ---
Assessment and Plan Assessment and plan: (1) Diastolic CHF - Patient denied shortness of breath, osteopenia, PND - Patient did have bilateral leg swelling - Patient refused echo and stress test (2) Chest pain - Cardiac enzymes were negative, patient denied chest pain - Patient refused stress test - Patient has a recent cardiac workup at [facility] (3) HTN (hypertension) - Continue blood pressure is on the low side - Hold BP medications (4) Diabetes -refused insulin (5) DVT prophylaxis SCD to BLE while in bed. Patient has significant weight loss -Refused CAT scan of chest and abdomen Disposition; patient is pending placement. He refused all work up and treatments. - Patient Problems (1) Chest pain Current Visit: Yes Status: Acute Qualifiers: Ischemic chest pain type: stable angina pectoris (2) Decreased appetite Current Visit: Yes Status: Acute (3) Dehydration Current Visit: Yes Status: Acute (4) Schizophrenia Current Visit: Yes Status: Acute History Interval history: Patient was seen and evaluated this morning, patient doesn't want to talk to me but he said "how can I help you". Hospitalist Physical - Physical exam Narrative exam: Patient is doesn't want to be examined - Constitutional Vitals: Temp Pulse Resp BP Pulse Ox 97.5 F L 108 H 18 130/84 97 09/12/18 07:36 09/12/18 07:36 09/12/18 10:00 09/12/18 07:36 09/12/18 07:36 General appearance: Present: no acute distress, cachectic Results - Labs CBC & Chem 7: 08/29/18 13:46 09/04/18 08:07 Labs: Laboratory Last Values WBC 7.3 K/mm3 (4.5-11.0) 08/29/18 13:46 RBC 3.97 M/mm3 (3.65-5.03) 08/29/18 13:46 Hgb 11.3 gm/dl (11.8-15.2) L 08/29/18 13:46 Hct 33.9 % (35.5-45.6) L 08/29/18 13:46 MCV 86 fl (84-94) 08/29/18 13:46 MCH 29 pg (28-32) 08/29/18 13:46 MCHC 33 % (32-34) 08/29/18 13:46 RDW 13.7 % (13.2-15.2) 08/29/18 13:46 Plt Count 211 K/mm3 (140-440) 08/29/18 13:46 Lymph % (Auto) 21.9 % (13.4-35.0) 08/29/18 13:46 [place] % (Auto) 6.1 % (0.0-7.3) 08/29/18 13:46 Eos % (Auto) 1.0 % (0.0-4.3) 08/29/18 13:46 Baso % (Auto) 0.8 % (0.0-1.8) 08/29/18 13:46 Lymph # 1.6 K/mm3 (1.2-5.4) 08/29/18 13:46 [place] # 0.4 K/mm3 (0.0-0.8) 08/29/18 13:46 Eos # 0.1 K/mm3 (0.0-0.4) 08/29/18 13:46 Baso # 0.1 K/mm3 (0.0-0.1) 08/29/18 13:46 Seg Neutrophils % 70.2 % (40.0-70.0) H 08/29/18 13:46 Seg Neutrophils # 5.1 K/mm3 (1.8-7.7) 08/29/18 13:46 D-Dimer 226.69 ng/mlDDU (0-234) 08/28/18 16:02 Sodium 143 mmol/L (137-145) 09/04/18 08:07 Potassium 4.2 mmol/L (3.6-5.0) 09/04/18 08:07 Chloride 100.6 mmol/L (98-107) 09/04/18 08:07 Carbon Dioxide 28 mmol/L (22-30) 09/04/18 08:07 Anion Gap 19 mmol/L 09/04/18 08:07 BUN 20 mg/dL (9-20) 09/04/18 08:07 Creatinine 1.1 mg/dL (0.8-1.5) 09/04/18 08:07 Estimated GFR > 60 ml/min 09/04/18 08:07 BUN/Creatinine Ratio 18 % 09/04/18 08:07 Glucose 92 mg/dL (75-100) 09/04/18 08:07 POC Glucose 175 (70-105) H 09/12/18 11:47 Calcium 8.9 mg/dL (8.4-10.2) 09/04/18 08:07 Total Bilirubin 0.50 mg/dL (0.1-1.2) 09/04/18 08:07 AST 18 units/L (5-40) 09/04/18 08:07 ALT 16 units/L (7-56) 09/04/18 08:07 Alkaline Phosphatase 98 units/L (35-129) 09/04/18 08:07 Troponin T 0.017 ng/mL (0.00-0.029) 08/29/18 13:46 NT-Pro-B Natriuret Pep 233.2 pg/mL (0-900) 08/28/18 16:02 Total Protein 6.5 g/dL (6.3-8.2) 09/04/18 08:07 Albumin 3.6 g/dL (3.9-5) L 09/04/18 08:07 Albumin/Globulin Ratio 1.2 % 09/04/18 08:07 Triglycerides 136 mg/dL (2-149) 08/28/18 13:18 Cholesterol 162 mg/dL (50-199) 08/28/18 13:18 LDL Cholesterol Direct 85 mg/dL (50-130) 08/28/18 13:18 HDL Cholesterol 58 mg/dL (40-59) 08/28/18 13:18 Cholesterol/HDL Ratio 2.79 % 08/28/18 13:18 Urine Color Dark yellow (Yellow) 08/29/18 13:00 Urine Turbidity Clear (Clear) 08/29/18 13:00 Urine pH 5.0 (5.0-7.0) 08/29/18 13:00 Ur Specific [place] 1.029 (1.003-1.030) 08/29/18 13:00 Urine Protein 30 mg/dl mg/dL (Negative) 08/29/18 13:00 Urine Glucose (UA) 50 mg/dL (Negative) 08/29/18 13:00 Urine Ketones Neg mg/dL (Negative) 08/29/18 13:00 Urine Blood Neg (Negative) 08/29/18 13:00 Urine Nitrite Neg (Negative) 08/29/18 13:00 Urine Bilirubin Neg (Negative) 08/29/18 13:00 Urine Urobilinogen 2.0 mg/dL (<2.0) 08/29/18 13:00 Ur Leukocyte Esterase Neg (Negative) 08/29/18 13:00 Urine WBC (Auto) < 1.0 /HPF (0.0-6.0) 08/29/18 13:00 Urine RBC (Auto) 1.0 /HPF (0.0-6.0) 08/29/18 13:00 Urine Mucus Few /HPF 08/29/18 13:00 Active Medications - Current Medications Current Medications: Generic Name Dose Route Start Last Admin Trade Name Freq PRN Reason Stop Dose Admin Acetaminophen 650 mg 08/28/18 15:51 09/05/18 09:15 Tylenol PO 650 mg Q4H PRN Administration Pain MILD(1-3)/Fever >100.5/OLIVA Albuterol 2.5 mg 08/28/18 15:51 Proventil IH Q4HRT PRN Shortness Of Breath Atorvastatin Calcium 20 mg 08/28/18 22:00 09/11/18 22:36 Lipitor PO Not Given QHS [facility] Cyproheptadine HCl 4 mg 08/28/18 22:00 09/12/18 12:01 Periactin PO Not Given BID [facility] Duloxetine HCl 30 mg 08/29/18 10:00 09/12/18 12:00 Cymbalta PO Not Given QAM [facility] Famotidine 20 mg 08/28/18 22:00 09/12/18 12:02 Pepcid PO Not Given BID [facility] Insulin Human Lispro 0 unit 08/29/18 11:30 09/12/18 12:00 Humalog SUB-Q Not Given ACHS [facility] Protocol Metoprolol Tartrate 25 mg 08/29/18 10:00 09/12/18 12:00 Lopressor PO Not Given DAILY [facility] Morphine Sulfate 2 mg 08/28/18 15:51 Morphine IV Q4H PRN Pain, Moderate (4-6) Multivitamins 1 each 08/29/18 10:00 09/12/18 12:01 Theragran Tab PO Not Given QDAY [facility] Nitroglycerin 0.4 mg 08/28/18 15:51 Nitrostat SL Q5M PRN Chest Pain Ondansetron HCl 4 mg 08/28/18 15:51 Zofran IV Q8H PRN Nausea And Vomiting Sodium Chloride 10 ml 08/28/18 22:00 09/12/18 12:01 Sodium Chloride Flush Syringe 10 Ml IV Not Given BID ANNAMARIA Sodium Chloride 10 ml 08/28/18 15:51 Sodium Chloride Flush Syringe 10 Ml IV PRN PRN LINE FLUSH Nutrition/Malnutrition Assess - Dietary Evaluation Nutrition/Malnutrition Findings: Nutrition Notes Start: 08/29/18 14:02 Freq: Status: Active Protocol: Document 09/11/18 15:33 RM (Rec: 09/11/18 15:37 RM [email or web address]) Nutrition Notes Initial or Follow up Reassessment Current Diagnosis Diabetes,Hypertension,Heart Failure Other Pertinent Diagnosis Depression, acute renal failure, schizophrenia Current Diet Cardiac/Consistent CHO Labs/Tests No recent labs Pertinent Medications Reviewed Height 5 ft 8 in Weight 49.7 kg [place] Body Weight (kg) 70.00 BMI 16.6 Subjective/Other Information Pt refused to speak with development writer. Recorded PO intake 25% X 2 meals. Percent of energy/protein needs met: 25%/36% Burn Absent Trauma Absent #1 Nutrition Diagnosis Underweight Diagnosis Progress(for reassessment Continues documentation) Is patient on ventilator? No Is Patient Ambulatory and/or Out of Bed Yes REE-(Fleming-St. Jeor-ambulatory/OOB) [ 1620.450 [id number]] Kcal/Kg value to use for calculation 40 Approximate Energy Requirements Using 1988 kcal/Kg Calculation Used for Recommendations Kcal/kg Additional Notes Protein Needs: 58-72g (1.2-1. 5g/kg) Fluid Needs: 1 ml/kcal Nutrition Intervention Change Diet Order: Cardiac/Consistent CHO Goal #1 Meet at least 75% of calorie and protein needs via PO intake Anticipated Discharge Needs: Cardiac/Consistent CHO Follow-Up By: 09/14/18 Additional Comments Follow for intakes
--- NOTE | 2018-09-13 11:26 | Discharge Summary ---
Providers - Providers Date of Admission: 08/28/18 15:51 Attending physician: ESTEVAN WOOD MD 08/28/18 Consult to Cardiac Rehabilitation [CONS] Routine Reason For Exam: Phase I 08/28/18 15:51 Consult to Cardiology [CONS] Routine Consulting Provider: PHILLIP POSEY Reason For Exam: chf 08/30/18 10:03 Consult to Mental Health [CONS] Routine Reason For Exam: Schizophrenia, dpression Place consult to:: mental health Notified:: Colleen LANDRY Phone number called:: [phone] Was contact made?: Yes If yes, spoke with:: Mad[facility] Comment:: need assistance in the DC planning, anchor? 09/03/18 10:14 Consult to Dietitian/Nutrition [CONS] Routine Physician Instructions: Reason For Exam: Reason for Consult: Malnutrition 09/04/18 10:10 Physical Therapy Evaluation and Treat [CONS] Routine Comment: Reason For Exam: unsteady gait, dizziness, weakness Primary care physician: BOTTOM BLEACHER Hospitalization Reason for admission: chest pain, schizophrenia Condition: Stable Pertinent studies: Refused all work ups Hospital course: Patient evaluated for chest pain, diabetes and schizophrenia. Patient refused all kind of tests and medication. Psych was consulted and recommended outpatient follow-up. Patient didn't have a place to go and we placed him in to SNF. Patient refused examination and I didn't examine him. He was not voluntary to talk. Disposition: [id number]/[place]-[id number] SNF [facility] Time spent for discharge: 32 minutes - Discharge Diagnoses (1) Chest pain Status: Acute Qualifiers: Ischemic chest pain type: stable angina pectoris (2) Decreased appetite Status: Acute (3) Dehydration Status: Acute (4) Schizophrenia Status: Acute Core Measure Documentation - Palliative Care Palliative Care/ Comfort Measures: Not Applicable - Core Measures Any of the following diagnoses?: none Exam - Physical Exam Narrative exam: Patient is doesn't want to be examined - Constitutional Vitals: Temp Pulse Resp BP Pulse Ox 97.9 F 107 H 18 136/70 98 09/13/18 07:33 09/13/18 08:10 09/13/18 07:33 09/13/18 07:33 09/13/18 08:10 Plan Activity: no restrictions Weight Bearing Status: Full Weight Bearing Diet: low salt, diabetic Follow up with: PRIMARY CAREMD [Primary Care Provider] - 3-5 Days SANDRITA SOUZA MD [Staff Physician] - 7 Days
[2018-09-13] MEDS: HumaLOG SUB-Q SCH ×2 (12:58→12:59)
[2018-09-13] MEDS: CYMBALTA PO SCH (12:59)
[2018-09-13] MEDS: LOPRESSOR PO SCH (12:59)
[2018-09-13] MEDS: PEPCID PO SCH (12:59)
[2018-09-13] MEDS: SODIUM CHLORIDE FLUSH SYRINGE 10 ML IV SCH (12:59)
[2018-09-13] MEDS: PERIACTIN PO SCH (12:59)
[2018-09-13] MEDS: THERAGRAN Tab PO SCH (12:59)
[2018-09-13 14:46] VITALS: BP 112/61
== END 2018-09-13 16:16 | DRG 682 ==
LOC: ED 12:06 → 4A 15:51 → 2B-ACE 09-02 13:38
PROVIDERS: ADMIT Internal Medicine; ATTEND Internal Medicine
DX: N17.9 Acute kidney failure, unspecified (principal); I50.31 Acute diastolic (congestive) heart failure; E43 Unspecified severe protein-calorie malnutrition; E41 Nutritional marasmus; Z68.1 Body mass index [BMI] 19.9 or less, adult; I11.0 Hypertensive heart disease with heart failure; E86.0 Dehydration; E11.649 Type 2 diabetes mellitus with hypoglycemia without coma; E87.5 Hyperkalemia; F20.9 Schizophrenia, unspecified; F32.9 Major depressive disorder, single episode, unspecified; F17.200 Nicotine dependence, unspecified, uncomplicated; Z83.3 Family history of diabetes mellitus; Z82.49 Family history of ischemic heart disease and other diseases of the circulatory system; Z79.82 Long term (current) use of aspirin; Z79.4 Long term (current) use of insulin; Z79.899 Other long term (current) drug therapy
CPT/HCPCS: 36415; 80048; 80053; 80061; 81001; 82962; 83880; 84484; 85025; 85379; 93005; 93010; 99285; G0378; A9270-GY; J1815; J7030